=== PATIENT | male | born 1940 | race Caucasian/White ===

== ENCOUNTER 2017-09-12 08:39 | Inpatient (IN) | payer OTHER, MEDICARE ==
[~2017-09-12] VITALS: Ht 172.7 cm; Wt 78.9 kg
[~2017-09-12 08:39] MED LIST: ACEPHEN650 MG PR; ALLOPURINOL100 M1 PO; AMLODIPINE BES2.5 M1 PO; AMLODIPINE10 MG PO; ANBESOL12 ML AS; APAP325 MG PO; ASPIRIN EC325 MG PO; ASPIRIN EC81 M1 PO; ATORVASTATIN CA40 MG PO; BETAMETHASONE D0.054 TOP; BRILINTA90 MG PO; BUFFERIN LOW DO81 MG PO; BUSPIRONE HCL5 MG PO; CARVEDILOL12.5 M1 PO; CARVEDILOL12.5 MG PO; CARVEDILOL25 M1 PO; COLCHICINE0.6 MG PO; COREG25 M1 PO; DULCOLAX10 MG PR; Desitin TOP; ECOTRIN81 MG PO; FENOFIBRATE48 MG PO; FENOFIBRIC ACID45 MG PO; FIRST-VANCOM25 MG/ML PO; FLEET ENEMA 131 UNIT RC; FLOMAX(MONOGRA0.4 MG PO; FLOMAX0.4 M1 PO; GLUCAGON1 MG IM; GLUCOSE PO; HEPARIN 2525000 UNI1 IV; HUMALOG100 U/ML SC; HUMALOG100 UNIT/2 SC; HYDRALAZINE HCL25 MG PO; IMDUR PO; IMDUR30 MG PO; IMDUR60 MG PO; IMODIUM 2 MG. CA2 MG PO; IMODIUM2 MG PO; ISOSORBIDE MONO30 M1 PO; ISOSORBIDE MONO60 M1 PO; LANTUS INS100 UNITS/ SC; LANTUS SOL100 UNIT/1 SC; LANTUS100 U/ML SC; LANTUS100 UNIT/1 SC; LASIX20 MG PO; LASIX40 M1 PO; LEADER MELATONIN5 MG PO; LEVEMIR100 UNIT/1 SC; LEVOTHYROXINE0.15 MG PO; LEXAPRO 10MG10 MG PO; LEXAPRO 5MG5 MG PO; LEXAPRO10 M1 PO; LIPITOR 40MG40 MG PO; LIPITOR80 M1 PO; LIPITOR80 MG PO; LOPRESSOR50 MG PO; MASON NATURAL2000 IU PO; MELATONIN3 MG PO; MELATONIN5 M1 PO; MELATONIN5 M7 PO; MILK OF MAGNESI30 ML PO; NAC600 MG PO; NITROGLYCERIN D25 MG IV; NORVASC 2.5 MG2.5 MG PO; NOVOLIN L100 UNITS/ SC; NOVOLOG100 U/ML SC; NOVOLOG100 UNIT/2 SC; ONE DAILY MULT1 EAC2 PO; PAIN RELIEF650 MG PO; PLAVIX 75MG TAB75 MG PO; PLAVIX75 M1 PO; PREDNISONE 20MG20 MG PO; PREDNISONE10 MG PO; RANEXA 500MG500 MG PO; RANEXA500 M1 PO; SYNTHROID125 MCG PO; TRICOR 48MG48 MG PO; TYLENOL EXTRA500 M2 PO; TYLENOL TAB 32325 MG PO; TYLENOL500 MG PO; ULTRAM50 M1 PO; VITAMIN D32000 UNI1 PO; ZINC OXIDE TOP
[2017-09-12 09:30] LABS: ABSOLUTE BASOPHIL COUNT 0.1 /CUMM (0.0-0.2); ABSOLUTE EOSINOPHIL COUNT 0.3 /CUMM (0.0-0.7); ABSOLUTE GRANULOCYTE CT 5.2 /CUMM (1.4-6.5); ABSOLUTE LYMPH COUNT 0.7 /CUMM (1.2-3.4); ABSOLUTE MONOCYTE COUNT 0.8 /CUMM (0.10-0.60); BASOPHIL % 0.8 % (0.0-2.0); EOSINOPHIL % 4.9 % (0-5); GRANULOCYTE % 73.1 % (42.2-75.2); HEMATOCRIT 28.3 % (42-52); MEAN CORPUSCULAR HGB 31.2 PG (27.0-31.0); MEAN CORPUSCULAR HGB CONC 33.8 G/DL (33.0-37.0); MEAN CORPUSCULAR VOLUME 92.3 FL (80.0-94.0); MEAN PLATELET VOLUME 7.7 FL (7.4-10.4); PLATELET COUNT 259 /CUMM (130-400); RBC DISTRIBUTION WIDTH 18.2 % (11.5-14.5); RED BLOOD CELL CT 3.06 /CUMM (4.70-6.10); WHITE BLOOD CELL COUNT 7.2 /CUMM (4.8-10.8)
[2017-09-12] MEDS ORDERED: FUROSEMIDE20 M1 PO (09:40)
[2017-09-12] MEDS ORDERED: FUROSEMIDE40 M1 PO (09:40)
[2017-09-12] MEDS ORDERED: CARVEDILOL25 M1 PO (09:42)
[2017-09-12] MEDS ORDERED: ISOSORBIDE MONO30 M1 PO (09:44)
[2017-09-12] MEDS ORDERED: B-12 DOTS500 MCG PO (09:46)
--- NOTE | 2017-09-12 09:46 | ED DYSPNEA/ASTHMA COMPLAINT ---
History of Present Illness General Chief Complaint: Dyspnea (COPD, CHF, Other) Stated Complaint: SOB Source: patient, family, old records Exam Limitations: no limitations Vital Signs & Intake/Output Vital Signs & Intake/Output Vital Signs Date Time Temp Pulse Resp B/P B/P Pulse O2 O2 Flow FiO2 Mean Ox Delivery Rate 09/12 1416 97.3 61 18 130/70 95 Room Air 09/12 1118 97.7 67 20 134/66 97 Room Air Room Air 09/12 0905 97 Room Air Room Air 09/12 0851 97.0 67 20 137/82 98 Room Air Allergies Coded Allergies: Iodinated Contrast- Oral and IV Dye (Severe, [place] 03/17/17) Reconcile Medications Acetaminophen (Tylenol Extra Strength) 500 MG TABLET 2 TAB PO Q6 PAIN ( Reported) Allopurinol 100 MG TABLET 1 TAB PO DAILY GOUT (Reported) Aspirin (Ecotrin*) 81 MG TABLET.DR 1 TAB PO DAILY HEART HEALTH (Reported) Atorvastatin Calcium (Lipitor) 80 MG TABLET 1 TAB PO DAILY CHOLESTEROL ( Reported) Carvedilol 25 MG TABLET 1 TAB PO BID HEART (Reported) Cholecalciferol (Vitamin D3) (Vitamin D3) 2,000 UNIT TABLET 1 TAB PO DAILY SUPPLEMENT (Reported) Clopidogrel Bisulfate (Plavix) 75 MG TABLET 1 TAB PO DAILY HEART ATTACK ( Reported) Cyanocobalamin (Vitamin B-12) (B-12 Dots) 500 MCG TABLET 1 TAB PO DAILY VITAMIN SUPPORT (Reported) Escitalopram Oxalate (Lexapro) 10 MG TABLET 5 MG PO DAILY DEPRESSION ( Reported) Furosemide 40 MG TABLET 1 TAB PO Q48 WATER RETENTION (Reported) Furosemide 20 MG TABLET 3 TAB PO Q48 WATER RETENTION (Reported) Insulin Aspart (Novolog) 100 UNIT/1 ML VIAL 0 UNITS SC TIDAC/HS Diabetes Before Each Meal Bolus Insulin: Novolog <80 mg/dl No Coverage 80-100 mg/dl: 2 units 101-120 mg/dl: 2 units 121-150 mg/dl: 2 units 151-200 mg/dl: 3 units 201-250 mg/dl: 4 units 251-300 mg/dl: 5 units 301-350 mg/dl: 6 units 351-400 mg/dl: 7 units >400 mg/dl : 8 units Insulin Glargine,Hum.rec.anlog (Lantus Solostar) 100 UNIT/ML (3 ML) INSULN.PEN 20 UNIT SC BID diabetes (Reported) Isosorbide Mononitrate (Isosorbide Mononitrate ER) 30 MG TAB.ER.24H 1 TAB PO DAILY HEART (Reported) Levothyroxine Sodium (Synthroid) 125 MCG TABLET 1 TAB PO DAILY AC THYROID ( Reported) Melatonin 5 MG TABLET 1 TAB PO QPM SLEEP (Reported) Ranolazine (Ranexa) 500 MG TAB.ER.12H 1 TAB PO BID HEART (Reported) Tamsulosin HCl (Flomax) 0.4 MG CAP.ER.24H 1 CAP PO BID PROSTATE (Reported) Core Measure Meds Pre-Hospital aspirin Triage Note: PT TO ED C/O FEELING SOB SINCE LAST NIGHT. PT NOTED WITH EXERTIONAL SOB. RA SATS 96%. PT DENIES ANY PAIN/CHEST PAIN. EKG DONE. PT TAKEN TO ROOM 12 FOR FURTHER EVAL. Triage Nurses Notes Reviewed? yes Onset: Last week Duration: day(s):, constant, continues in ED, getting worse Timing: recent history Severity: moderate, severe Activities at Onset: activity Prior Episodes/Possible Cause: occasional episodes Modifying Factors: Improves With: rest. Worsens With: movement. Associated Symptoms: weakness HPI: One week prior to admission the patient is had progressive shortness of breath especially with exertion now unable to walk 5 feet with extreme fatigue requiring rest. His Lasix dose has been manipulated by his different doctors. There has been no fever chills nausea vomiting diarrhea abdominal pain chest pain headache dysuria rash bleeding. Past History Travel History Traveled to [place] past 21 day No Medical History Any Pertinent Medical History? see below for history Neurological: ? VASCULAR DEMENTIA EENT: NONE Cardiovascular: CAD, cardiomyopathy, hypertension, hyperlipidemia, myocardial infarction, NSTEMI, systolic CHF, R Carotid Complete Occlu L Carotid 50-75% Occlusio PPM for SSS 03/19/2015. 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 Musculoskeletal: gout, osteoarthritis, rheumatoid arthritis, polymyalgia rheumatica Psychiatric: depression Endocrine: diabetes, hypothyroidism, obesity Blood Disorders: anemia, hx transfx. 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 RIGHT CEA s/p R. CEA Psychosocial History Who do you live with Spouse Services at Home None What is your primary language Pakistani Tobacco Use: Quit >30 days ago ETOH Use: denies use Illicit Drug Use: denies illicit drug use Family History Family History, If Any: SON (hx of Gout, NSAID induced b/L RF, on HD). Age 40-50. FATHER, , Age 80; Cause: Pneumonia. MOTHER, , Age 60+; Cause: Ovarian ca. Relation not specified for: Renal failure Hx Contributory? No Review of Systems Review of Systems Constitutional: Reports: see HPI, weakness. EENTM: Reports: no symptoms. Respiratory: Reports: see HPI, short of breath. Cardiovascular: Reports: no symptoms. GI: Reports: no symptoms. Genitourinary: Reports: no symptoms. Musculoskeletal: Reports: no symptoms. Skin: Reports: no symptoms. Neurological/Psychological: Reports: no symptoms. Hematologic/Endocrine: Reports: no symptoms. Immunologic/Allergic: Reports: no symptoms. All Other Systems: Reviewed and Negative Physical Exam Physical Exam General Appearance: well developed/nourished, alert, awake, moderate distress, obese Head: atraumatic, normal appearance Eyes: Bilateral: normal appearance, PERRL, EOMI. Ears, Nose, Throat: normal pharynx, normal ENT inspection, hearing grossly normal Neck: normal inspection, supple, JVD, no midline tenderness Respiratory: chest non-tender, rales, respiratory distress Cardiovascular: regular rate/rhythm, normal peripheral pulses, norml femoral pulses equa Peripheral Pulses: 4+ carotid (R), 4+ carotid (L) Gastrointestinal: normal bowel sounds, soft, non-tender, no organomegaly Extremities: normal inspection, normal capillary refill, normal range of motion, no edema Neurologic/Psych: no motor/sensory deficits, awake, alert, oriented x 3, normal gait, normal mood/affect, survival equipment repairer II-XII nml as tested Skin: intact, pallor Lymphatic: no anterior cervical charles Core Measures ACS in differential dx? Yes No ASA d/t Pharmacological CI CVA/TIA Diagnosis No Sepsis Present: No Sepsis Focused Exam Completed? No Progress Differential Diagnosis: CHF, COPD, pneumonia Plan of Care: Orders Procedure Date/time Status Consistent Carbohydrate 2 09/12 L Active Weight 09/12 1225 Active Vital Signs 09/12 1225 Active Teach/Educate 09/12 1225 Active Pain Treatment and Response 09/12 1225 Active Nutritional Intake, Monitor 09/12 1225 Active Isolation 09/12 1225 Active Intake & Output 09/12 1225 Active Patient Care Conference 09/12 1225 Active Activity/Ambulation 09/12 1225 Active Patient Data 09/12 1135 Active OXYGEN SETUP (GEN) 09/12 0915 Active Saline Lock 09/12 0915 Active Admit to inpatient 09/12 0915 Active Vital Signs 09/12 0915 Active Activity/Ambulation 09/12 0915 Active Code Status 09/12 0915 Active TROPONIN LEVEL 09/12 0912 Complete MAGNESIUM 09/13 911 Complete COMPREHENSIVE METABOLIC PANEL 09/12 09 Complete CBC WITHOUT DIFFERENTIAL 09/13 911 Complete B-TYPE NATRIURETIC PEP (BNP) 09/12 0912 Complete Intake & Output 09/12 0904 Active FingerStick- Glucose 09/12 0851 Active EKG 09/12 0841 Active Current Medications Sig/Silvia Start time Last Medication Dose Stop Time Status Admin Allopurinol 100 MG DAILY 09/13 899 AC (Zyloprim) Aspirin Buffered 81 MG DAILY 09/13 899 AC (Ecotrin) Cholecalciferol 2,000 IU DAILY 09/13 899 AC (Vitamin D) Clopidogrel Bisulfate 75 MG DAILY 09/13 899 AC (Plavix) Cyanocobalamin 1,000 MCG DAILY 09/13 899 AC (Vitamin B12) Escitalopram Oxalate 5 MG DAILY 09/13 899 AC (Lexapro) Isosorbide 30 MG DAILY 09/13 899 AC Mononitrate (Imdur) Levothyroxine Sodium 0.125 MG DAILY AC 09/13 699 AC (Synthroid) Carvedilol 25 MG BID 09/12 2099 AC (Coreg) Insulin Detemir 20 UNITS BID 09/12 2099 AC (Levemir) Melatonin 5 MG QPM 09/12 2099 AC (Melatonin) Ranolazine 500 MG BID 09/12 2099 AC (Ranexa) Tamsulosin HCl 0.4 MG BID 09/12 2099 AC (Flomax) Atorvastatin Calcium 80 MG 1700 09/12 1700 AC (Lipitor) Insulin Aspart 0 TIDAC 09/12 1700 AC 09/12 (NovoLOG) 1337 Laboratory Tests 09/12/17 0920: Anion Gap 14, Estimated GFR 34 L, BUN/Creatinine Ratio 35.8 H, Glucose 168 H, Calcium 8.5, Magnesium 1.7, Total Bilirubin 0.5, AST 26, ALT 37, Alkaline Phosphatase 90, Troponin I 0.02, Raw-U-Nlywszhjekq Pept 36069 H, Total Protein 7.0, Albumin 3.2 L, Globulin 3.8, Albumin/Globulin Ratio 0.8 L, CBC w Diff NO MAN DIFF REQ, RBC 3.06 L, MCV 92.3, MCH 31.2 H, MCHC 33.8, RDW 18.2 H, MPV 7.7, Gran % 73.1, Lymphocytes % 9.9 L, Monocytes % 11.3 H, Eosinophils % 4.9, Basophils % 0.8, Absolute Granulocytes 5.2, Absolute Lymphocytes 0.7 L, Absolute Monocytes 0.8 H, Absolute Eosinophils 0.3, Absolute Basophils 0.1 Diagnostic Imaging: Viewed by Me: Radiology Read. Discussed w/RAD: Radiology Read. Initial ED EKG: RBBB, nonspecific ST T wave chg Prior EKG: unchanged Rhythm Strip: normal sinus rhythm Departure Departure Disposition: STILL A PATIENT Condition: Stable Clinical Impression Primary Impression: Congestive heart failure Secondary Impressions: Chronic renal insufficiency Referrals: Radha PALAFOX,Bethanie Ambrosio (PCP/Family) Departure Forms: Customer Survey General Discharge Information Admission Note Spoke With: Neftaly PALAFOX,Mitzy Moran Documentation of Exam: Documentation of any treatments & extenuating circumstances including Concerns Regarding Discharge (functional status, medication knowledge or non-compliance, living conditions, etc.) that warrant an admission rather than observation: Supplemental oxygen IV diuresis serial lab exam serial EKG cardiology evaluation pulmonary evaluation renal evaluation medication adjustment physical therapy continuing care discharge planning Critical Care Note Critical Care Note Critical Care Time: non-applicable
--- NOTE | 2017-09-12 11:49 | History & Physical ---
See Addendum Thea PALAFOXRy 09/12/17 1148: General Information and HPI History of Present Illness: 76-year-old man with significant past medical history of ischemic cardiomyopathy (35-40%), coronary artery disease/MA/and STEMI status post PCI with stent 2 on aspirin/Plavix, vascular dementia, insulin-dependent diabetes mellitus, hypertension, hyperlipidemia, and obesity seen for evaluation of progressively worsening shortness of breath with productive cough. Patient reportedly sees multiple providers for his "breathing problems" who manage his "water pill". Patient sees dry food products mixer Dr. Clayton, district court judge Elliott Claros MD, and retail maintenance technician Dr. Faria. Patient reportedly recently had his Lasix regimen changed from 40 mg by mouth daily to 40 mg every other day alternating with 60 mg every other day. Patient is only able to walk approximately 15 feet without becoming profoundly short of breath. He denies any recent fever, chills, chest pain, palpitations. He has reportedly been drinking a lot of fluids but has not been eating well. Due to progressively worsening symptoms his family member brought him to the [facility] for evaluation. Presently patient states at rest his breathing is comfortable and he has no complaints. Review of systems He otherwise denies any headache, fever, chills, blurred/double vision, lightheadedness/dizziness, chest pain, palpitations, heartburn, current shortness of breath, nausea, vomiting, diarrhea, constipation, urinary symptoms. Social history Patient denies using tobacco or alcohol. He ambulates with assistance of a rolling walker. He is unable to sleep lying flat at night and uses several blankets/pillows to elevate his head to approximately a 45 angle. He is unable to ascend stairs without significant discomfort. He is reportedly compliant with his medications. Allergies/Medications Allergies: Coded Allergies: Iodinated Contrast- Oral and IV Dye (Severe, [place] 03/17/17) Home Med list Acetaminophen (Tylenol Extra Strength) 500 MG TABLET 2 TAB PO Q6 PAIN ( Reported) Allopurinol 100 MG TABLET 1 TAB PO DAILY GOUT (Reported) Aspirin (Ecotrin*) 81 MG TABLET.DR 1 TAB PO DAILY HEART HEALTH (Reported) Atorvastatin Calcium (Lipitor) 80 MG TABLET 1 TAB PO DAILY CHOLESTEROL ( Reported) Carvedilol 25 MG TABLET 1 TAB PO BID HEART (Reported) Cholecalciferol (Vitamin D3) (Vitamin D3) 2,000 UNIT TABLET 1 TAB PO DAILY SUPPLEMENT (Reported) Clopidogrel Bisulfate (Plavix) 75 MG TABLET 1 TAB PO DAILY HEART ATTACK ( Reported) Cyanocobalamin (Vitamin B-12) (B-12 Dots) 500 MCG TABLET 1 TAB PO DAILY VITAMIN SUPPORT (Reported) Escitalopram Oxalate (Lexapro) 10 MG TABLET 5 MG PO DAILY DEPRESSION ( Reported) Furosemide 40 MG TABLET 1 TAB PO Q48 WATER RETENTION (Reported) Furosemide 20 MG TABLET 3 TAB PO Q48 WATER RETENTION (Reported) Insulin Aspart (Novolog) 100 UNIT/1 ML VIAL 0 UNITS SC TIDAC/HS Diabetes Before Each Meal Bolus Insulin: Novolog <80 mg/dl No Coverage 80-100 mg/dl: 2 units 101-120 mg/dl: 2 units 121-150 mg/dl: 2 units 151-200 mg/dl: 3 units 201-250 mg/dl: 4 units 251-300 mg/dl: 5 units 301-350 mg/dl: 6 units 351-400 mg/dl: 7 units >400 mg/dl : 8 units Insulin Glargine,Hum.rec.anlog (Lantus Solostar) 100 UNIT/ML (3 ML) INSULN.PEN 20 UNIT SC BID diabetes (Reported) Isosorbide Mononitrate (Isosorbide Mononitrate ER) 30 MG TAB.ER.24H 1 TAB PO DAILY HEART (Reported) Levothyroxine Sodium (Synthroid) 125 MCG TABLET 1 TAB PO DAILY AC THYROID ( Reported) Melatonin 5 MG TABLET 1 TAB PO QPM SLEEP (Reported) Ranolazine (Ranexa) 500 MG TAB.ER.12H 1 TAB PO BID HEART (Reported) Tamsulosin HCl (Flomax) 0.4 MG CAP.ER.24H 1 CAP PO BID PROSTATE (Reported) Past History Travel History Traveled to [place] past 21 day No Medical History Neurological: ? VASCULAR DEMENTIA EENT: NONE Cardiovascular: CAD, cardiomyopathy, hypertension, hyperlipidemia, myocardial infarction, NSTEMI, systolic CHF, R Carotid Complete Occlu L Carotid 50-75% Occlusio PPM for SSS 03/19/2015. 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 Musculoskeletal: gout, osteoarthritis, rheumatoid arthritis, polymyalgia rheumatica Psychiatric: depression Endocrine: diabetes, hypothyroidism, obesity Blood Disorders: anemia, hx transfx. 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 RIGHT CEA s/p R. CEA Past Family/Social History Family History Relations & Conditions if any SON (hx of Gout, NSAID induced b/L RF, on HD). Age 40-50. FATHER, , Age 80; Cause: Pneumonia. MOTHER, , Age 60+; Cause: Ovarian ca. Relation not specified for: Renal failure Psychosocial History Who Do You Live With? spouse ((2nd , Sydnee Cisse).) Services at Home: None Primary Language: Thai ETOH Use: denies use Illicit Drug Use: denies illicit drug use Living Will? yes Power of Block Hand/HCP? yes Name of POA/HCP: Sydnee Cisse, pt's .[phone]. Functional Ability ADLs Independent: dressing, eating, toileting, bathing. Ambulation: independent IADLs Independent: telephone. Needs Assist: housework, food prep. Unknown: shopping, finances, transportation, medication admin. Review of Systems Review of Systems Constitutional: Reports: see HPI. Exam & Diagnostic Data Last 24 Hrs of Vital Signs/I&O Vital Signs Date Time Temp Pulse Resp B/P B/P Pulse O2 O2 Flow FiO2 Mean Ox Delivery Rate 09/12 1416 97.3 61 18 130/70 95 Room Air 09/12 1118 97.7 67 20 134/66 97 Room Air Room Air 09/12 0905 97 Room Air Room Air 09/12 0851 97.0 67 20 137/82 98 Room Air Intake & Output 09/12 1600 09/12 0800 09/12 0000 Intake Total 0 Output Total 500 Balance -500 Intake, Oral 0 Output, Urine 500 Patient 89.811 kg Weight Weight Reported by Patient Measurement Method Physical Exam General Appearance Alert, Oriented X3, Cooperative, No Acute Distress Skin No Rashes, No Breakdown, No Significant Lesion Skin Temp/Moisture Exam: Warm/Dry Sepsis Skin Exam (color): Normal for Ethnicity HEENT Atraumatic, PERRLA, EOMI, Mucous Membr. moist/pink Neck Supple, JVP ~7 Cardiovascular Regular Rate, Normal S1, Normal S2, No Murmurs Lungs Scattered crackles with good airflow Abdomen Normal Bowel Sounds, Soft, No Tenderness, No Hepatospenomegaly, No Masses Neurological Normal Speech, Cranial Nerves 3-12 NL Extremities No Clubbing, No Cyanosis, Normal Pulses, Trace-1+ pedal edema Vascular Normal Pulses, Pulses Symmetrical Last 24 Hrs of Labs/Prateek: Laboratory Tests 09/12/17 0920: Anion Gap 14, Estimated GFR 34 L, BUN/Creatinine Ratio 35.8 H, Glucose 168 H, Calcium 8.5, Magnesium 1.7, Total Bilirubin 0.5, AST 26, ALT 37, Alkaline Phosphatase 90, Troponin I 0.02, Els-C-Kbdbvrxfxoj Pept 26689 H, Total Protein 7.0, Albumin 3.2 L, Globulin 3.8, Albumin/Globulin Ratio 0.8 L, CBC w Diff NO MAN DIFF REQ, RBC 3.06 L, MCV 92.3, MCH 31.2 H, MCHC 33.8, RDW 18.2 H, MPV 7.7, Gran % 73.1, Lymphocytes % 9.9 L, Monocytes % 11.3 H, Eosinophils % 4.9, Basophils % 0.8, Absolute Granulocytes 5.2, Absolute Lymphocytes 0.7 L, Absolute Monocytes 0.8 H, Absolute Eosinophils 0.3, Absolute Basophils 0.1 Assessment/Plan Assessment: 76 year old man with multiple medical problems significant for coronary artery disease/ischemic cardiomyopathy (LVEF 35-40%), vascular dementia, and sick sinus syndrome status post permanent pacemaker seen for evaluation of progressively worsening exertional shortness of breath with productive cough. Currently patient is complaining of his persistent/progressively worsening exertional shortness of breath and productive cough of yellow sputum. Vital signs are unremarkable; patient is saturating well on room air. Physical exam is significant for scattered crackles with elevated JVP and trace pedal edema. Labs including CBC, hepatic function panel, and serum chemistry are significant for creatinine of 1.9 (baseline 1.7-2.4). Other significant labs include magnesium of 1.7, troponin CXR on 09/09/17 demonstrated a stable small partially loculated left pleural effusion with mild increase in interstitial prominence bilaterally suggestive of pulmonary vascular congestion. EKG demonstrated normal sinus rhythm with PACs and incomplete right bundle branch block with ST segment depression in V3-V6. Clinically patient appears to have an acute decompensated systolic congestive heart failure exacerbation based on his recent chest x-ray demonstrating pulmonary vascular congestion, elevated BNP, and physical exam demonstrating elevated JVP, pulmonary crackles, and pedal edema. Patient is to be admitted to the telemetry floor for intravenous diuresis, repeat echocardiogram, serial troponin/EKG, and cardiology evaluation. Problem List -Acute decompensated systolic congestive heart failure -Ischemic cardiomyopathy, LVEF 35-40% (03/2017) -Vascular Dementia -CAD/MA/NSTEMI -Hypertension -Hyperlipidemia -Diabetes Mellitus -Occluded right carotid artery -Left carotid stenosis, 50-70% -SSS s/p PPM -BPH -CKD -Left nephrectomy -Gout -Osteoarthritis -Rheumatoid arthritis -Polymyalgia Rheumatica -Hypothyroidism -History of Renal Cell Carcinoma -Obesity Plan -Admit to telemetry floor -Telemetry monitoring -Strict I & Os, daily weights -TRC evaluation -Accuchecks TIDAC/HS -Lasix 40 mg IV BID, diurese to net negative 1-2 L/day -Levemir 20 U SC BID, Novolog SSI -Continue home meds: allopurinol, aspirin, atorvastatin, coreg, supplements, lexapro, levothyroxine, imdur, melatonin, flomax, ranexa -Consult with cardiology for decompensated CHF -Repeat transthoracic echocardiogram -Serial troponin/EKG -Monitor renal function -Pain control with acetaminophen -Heart Healthy diet -DVT PPx with subcutaneous heparin -DNR/DNI As Ranked By This Provider Problem List: 1. Acute decompensated heart failure Core Measures/Misc (12/19) Acute Coronary Syndrome ACS Diagnosis: No Congestive Heart Failure Congestive Heart Failure Diagnosis Yes Last Known EF % 35 No ANKIT/ARB d/t Renal Failure/Azotemia Cerebrovascular Accident CVA/TIA Diagnosis: No VTE (View Protocol) VTE Risk Factors Age>40 No Mechanical VTE Prophylaxis d/t N/A MechProphylax Ordered No VTE Pharm Prophylaxis d/t NA PharmProphylax ordered Sepsis (View protocol) Sepsis Present: No If YES complete Sepsis Event Note If YES complete Sepsis Event Note Chelsie Arvizu 09/12/17 1228: Core Measures/Misc (12/19) Sepsis (View protocol) If YES complete Sepsis Event Note If YES complete Sepsis Event Note Attending MD Review Statement Attending Statement Attending MD Statement: examined this patient, discuss w/resident/PA/FURNACE HELPER, agreed w/resident/PA/FURNACE HELPER, discussed with family, reviewed EMR data (avail), discussed with nursing, discussed with case mgmt, reviewed images, amended to note
[2017-09-12 14:16] VITALS: BP 130/70
[2017-09-12 22:00] VITALS: BP 122/62
[2017-09-13 07:14] VITALS: BP 106/58
--- NOTE | 2017-09-13 07:33 | PN- Housestaff ---
Diaz Thorntontito 09/13/17 0733: Subjective Follow-up For: Acute on chronic systolic CHF exacerbation Tele-Events Since Last Visit: Paced rhythm, heart rate 60-72 Subjective: Seen and examined patient today family at bedside. Continues to complain of generalized fatigue and shortness of breath at rest. Review of Systems Constitutional: Reports: see HPI. Objective Last 24 Hrs of Vital Signs/I&O Vital Signs Date Time Temp Pulse Resp B/P B/P Pulse O2 O2 Flow FiO2 Mean Ox Delivery Rate 09/13 0714 97.5 94 106/58 09/13 0000 Room Air 09/12 2200 97.5 65 18 122/62 93 Room Air 09/125 Room Air Room Air 09/13 2047 64 118/64 09/13 2047 64 118/64 09/13 2047 64 118/64 09/12 1600 Room Air Intake & Output 09/13 1600 09/13 0800 09/13 0000 Intake Total 240 220 400 Output Total 480 375 400 Balance -240 -155 0 Intake, Oral 240 220 400 Number 0 Bowel Movements Output, Urine 480 375 400 Patient 178 lb Weight Physical Exam General Appearance: Alert, Oriented X3, Cooperative, No Acute Distress Cardiovascular: Regular Rate, Normal S1, Normal S2 Lungs: b/l basillar crackles Abdomen: Soft, No Hepatospenomegaly Extremities: No Edema Current Medications: Current Medications Sig/Silvia Start time Last Medication Dose Route Stop Time Status Admin Acetaminophen 650 MG Q6P PRN 09/12 1445 AC PO Allopurinol 100 MG DAILY 09/13 899 AC 09/13 PO 0849 Aspirin Buffered 81 MG DAILY 09/13 899 AC 09/13 PO 0850 Atorvastatin Calcium 80 MG 1700 09/12 1700 AC 09/12 PO 1732 Carvedilol 25 MG BID 09/12 2100 AC 09/13 PO 0850 Cholecalciferol 2,000 IU DAILY 09/13 899 AC 09/13 PO 0849 Clopidogrel Bisulfate 75 MG DAILY 09/13 899 AC 09/13 PO 0850 Cyanocobalamin 1,000 MCG DAILY 09/13 899 AC 09/13 PO 0850 Escitalopram Oxalate 5 MG DAILY 09/13 899 AC 09/13 PO 0850 Furosemide 40 MG 7:30 AM, & 4:30 PM 09/12 1630 DC 09/13 IV 0618 Heparin Sodium 5,000 UNIT Q8 09/12 2200 AC 09/13 (Porcine) SC 1350 Insulin Aspart 0 TIDAC 09/12 1700 AC 09/13 SC 1230 Insulin Detemir 20 UNITS BID 09/12 2100 AC 09/13 SC 0810 Isosorbide 30 MG DAILY 09/13 0900 AC 09/13 Mononitrate PO 0850 Levothyroxine Sodium 0.125 MG DAILY AC 09/13 0700 AC 09/13 PO 0613 Melatonin 5 MG QPM 09/12 2099 AC 09/12 PO 2046 Ranolazine 500 MG BID 09/12 2100 AC 09/13 PO 0850 Tamsulosin HCl 0.4 MG BID 09/12 2100 AC 09/13 PO 0850 Last 24 Hrs of Lab/Prateek Results Last 24 Hrs of Labs/Mics: Laboratory Tests 09/13/17 0958: Skg-U-Ixorawplypj Pept Cancelled 09/13/17 0647: Anion Gap 12, Estimated GFR 28 L, BUN/Creatinine Ratio 33.0 H, Magnesium 1.8, Kwa-C-Zqzbhvvfbfu Pept 86121 H, CBC w Diff NO MAN DIFF REQ, RBC 3.02 L, MCV 92.6, MCH 31.4 H, MCHC 33.9, RDW 18.4 H, MPV 7.4, Gran % 70.3, Lymphocytes % 11.6 L, Monocytes % 12.0 H, Eosinophils % 5.6 H, Basophils % 0.5, Absolute Granulocytes 5.0, Absolute Lymphocytes 0.8 L, Absolute Monocytes 0.9 H, Absolute Eosinophils 0.4, Absolute Basophils 0 09/12/17 2250: Troponin I 0.02 09/12/17 1602: Troponin I 0.02 Assessment/Plan Assessment: 76-year-old gentleman past medical history significant for Ischemic cardiomyopathy ejection fraction ( last EF 30-35%), coronary artery disease status post bare-metal stent to proximal circumflex and first obtuse marginal in March 2017 currently on aspirin and Plavix, vascular dementia, hypertension, chronic kidney disease, peripheral artery disease, sick sinus syndrome status post pacemaker, liver neoplasm currently managed conservatively Assessment and plan Acute decompensated systolic heart failure 2 new to monitor on telemetry floor Was given 100 mg of Lasix yesterday, will continue with IV diuresis with strict I's and O's Cardiology note G on board, appreciate Echocardiogram done 09/12/17 shows ventricular EF of 4045%, hypokinetic inferior wall and elevated RV pressure of 60 mmHg. Continue Ranexa, carvedilol and Imdur Coronary artery disease Continue aspirin, Plavix and statin ACS ruled out by negative troponins 3 with no acute EKG changes Hypothyroidism Continue levothyroxine Diabetes mellitus Continue Accuchecks, long-acting Levemir at 20 twice daily, NovoLog sliding scale [phone] Chronic kidney disease Creatinine bumped up today to 2.3, most likely secondary to large dose of Lasix yesterday continue to monitor closely Nephrology consulted Continue home medications of Lexapro, allopurinol and Flomax, -PT to evaluate and treat -Pain control with acetaminophen -Heart Healthy diet -DVT PPx with subcutaneous heparin -DNR/DNI Problem List: 1. S/p nephrectomy 2. Heart failure with reduced ejection fraction 3. Insulin dependent diabetes mellitus Pain Ratin Pain Location: na Pain Goal: Pain 4 or less Pain Plan: current regimen Tomorrow's Labs & Rationales: Chelsie Mancia 09/13/17 1043: Attending MD Review Statement Attending Statement Attending MD Statement: examined this patient, discuss w/resident/PA/SYSTEM SUPPORT TECHNICIAN, agreed w/resident/PA/SYSTEM SUPPORT TECHNICIAN, discussed with family, reviewed EMR data (avail), discussed with nursing, discussed with case mgmt, reviewed images, amended to note Attending Assessment/Plan: 76 o/m with multiple medical problems in past comes with shortness of breath on exertion and worsening at rest. He has b/l diffuse crackles on bases. Patient has h/o nephrectomy and being treated by iv lasix. Cardiology consulted and obtain nephrology consult. His creatinne is 2.3 today. Also obtain repeat probnp levels and chest xray. F/u ECHO. No kathy inhibitor 2/2 Kidney insufficiency. AICD upgrade as per cardiology. gi/dvt prophylaxis
[2017-09-13 07:40] LABS: ABSOLUTE BASOPHIL COUNT 0 /CUMM (0.0-0.2); ABSOLUTE EOSINOPHIL COUNT 0.4 /CUMM (0.0-0.7); ABSOLUTE LYMPH COUNT 0.8 /CUMM (1.2-3.4); ABSOLUTE MONOCYTE COUNT 0.9 /CUMM (0.10-0.60); BASOPHIL % 0.5 % (0.0-2.0); EOSINOPHIL % 5.6 % (0-5); GRANULOCYTE % 70.3 % (42.2-75.2); MEAN CORPUSCULAR HGB 31.4 PG (27.0-31.0); MEAN CORPUSCULAR HGB CONC 33.9 G/DL (33.0-37.0); MEAN CORPUSCULAR VOLUME 92.6 FL (80.0-94.0); MEAN PLATELET VOLUME 7.4 FL (7.4-10.4); PLATELET COUNT 270 /CUMM (130-400); RBC DISTRIBUTION WIDTH 18.4 % (11.5-14.5); RED BLOOD CELL CT 3.02 /CUMM (4.70-6.10); WHITE BLOOD CELL COUNT 7.2 /CUMM (4.8-10.8)
--- NOTE | 2017-09-13 09:26 | Cons- Cardiology ---
General Information and HPI Consulting Request Date of Consult: 09/13/17 Requested By: Chelsie Arvizu MD Reason for Consult: CHF Source of Information: patient, family, old records Exam Limitations: dementia History of Present Illness: The patient is a 76-year-old male with a history of ischemic cardiomyopathy ejection fraction 30-35%, sick sinus syndrome status post pacemaker, status post nephrectomy, hypertension, chronic systolic heart failure, renal insufficiency, coronary artery disease status post non-ST elevation myocardial infarction ( catheterization 03/18/2017 diffuse coronary disease with 95% distal LAD, 100% proximal RCA, bare metal stents placed to the proximal circumflex and OM1), and peripheral arterial disease who now presents with worsening shortness of breath. Patient's is at the bedside who assists in providing history. She states that over the past few days he developed worsening shortness of breath. Over the weekend he did not want to come to the emergency room but since his dyspnea significantly worsened she brought him in for evaluation. He denied chest discomfort. There is no notable edema. Patient was administered Lasix 60 milligrams IV once and placed on 40 mg IV daily. Today's creatinine went from 1.9-2.3. In reviewing his recent outpatient blood work his BUN ranges from 68-75 with a creatinine from 2.0-2.2. Allergies/Medications Allergies: Coded Allergies: Iodinated Contrast- Oral and IV Dye (Severe, SD 03/17/17) Home Med List: Acetaminophen (Tylenol Extra Strength) 500 MG TABLET 2 TAB PO Q6 PAIN ( Reported) Allopurinol 100 MG TABLET 1 TAB PO DAILY GOUT (Reported) Aspirin (Ecotrin*) 81 MG TABLET.DR 1 TAB PO DAILY HEART HEALTH (Reported) Atorvastatin Calcium (Lipitor) 80 MG TABLET 1 TAB PO DAILY CHOLESTEROL ( Reported) Carvedilol 25 MG TABLET 1 TAB PO BID HEART (Reported) Cholecalciferol (Vitamin D3) (Vitamin D3) 2,000 UNIT TABLET 1 TAB PO DAILY SUPPLEMENT (Reported) Clopidogrel Bisulfate (Plavix) 75 MG TABLET 1 TAB PO DAILY HEART ATTACK ( Reported) Cyanocobalamin (Vitamin B-12) (B-12 Dots) 500 MCG TABLET 1 TAB PO DAILY VITAMIN SUPPORT (Reported) Escitalopram Oxalate (Lexapro) 10 MG TABLET 5 MG PO DAILY DEPRESSION ( Reported) Furosemide 40 MG TABLET 1 TAB PO Q48 WATER RETENTION (Reported) Furosemide 20 MG TABLET 3 TAB PO Q48 WATER RETENTION (Reported) Insulin Aspart (Novolog) 100 UNIT/1 ML VIAL 0 UNITS SC TIDAC/HS Diabetes Before Each Meal Bolus Insulin: Novolog <80 mg/dl No Coverage 80-100 mg/dl: 2 units 101-120 mg/dl: 2 units 121-150 mg/dl: 2 units 151-200 mg/dl: 3 units 201-250 mg/dl: 4 units 251-300 mg/dl: 5 units 301-350 mg/dl: 6 units 351-400 mg/dl: 7 units >400 mg/dl : 8 units Insulin Glargine,Hum.rec.anlog (Lantus Solostar) 100 UNIT/ML (3 ML) INSULN.PEN 20 UNIT SC BID diabetes (Reported) Isosorbide Mononitrate (Isosorbide Mononitrate ER) 30 MG TAB.ER.24H 1 TAB PO DAILY HEART (Reported) Levothyroxine Sodium (Synthroid) 125 MCG TABLET 1 TAB PO DAILY AC THYROID ( Reported) Melatonin 5 MG TABLET 1 TAB PO QPM SLEEP (Reported) Ranolazine (Ranexa) 500 MG TAB.ER.12H 1 TAB PO BID HEART (Reported) Tamsulosin HCl (Flomax) 0.4 MG CAP.ER.24H 1 CAP PO BID PROSTATE (Reported) Current Medications: Current Medications Sig/Silvia Start time Last Medication Dose Route Stop Time Status Admin Acetaminophen 650 MG Q6P PRN 09/12 1445 AC PO Allopurinol 100 MG DAILY 09/13 09 AC 09/13 PO 0849 Aspirin Buffered 81 MG DAILY 09/13 09 AC 09/13 PO 0850 Atorvastatin Calcium 80 MG 1700 09/12 1700 AC 09/12 PO 1732 Carvedilol 25 MG BID 09/12 2100 AC 09/13 PO 0850 Cholecalciferol 2,000 IU DAILY 09/13 899 AC 09/13 PO 0849 Clopidogrel Bisulfate 75 MG DAILY 09/13 899 AC 09/13 PO 0850 Cyanocobalamin 1,000 MCG DAILY 09/13 09 AC 09/13 PO 0850 Escitalopram Oxalate 5 MG DAILY 09/13 899 AC 09/13 PO 0850 Furosemide 40 MG 7:30 AM, & 4:30 PM 09/12 1630 AC 09/13 IV 0618 Furosemide 0 .STK-MED ONE 06/11 0923 DC IV Furosemide 60 MG ONCE ONE 09/12 0915 DC 09/12 IV 09/12 0916 0925 Heparin Sodium 5,000 UNIT Q8 09/12 2200 AC 09/13 (Porcine) SC 06 Insulin Aspart 0 TIDAC 09/12 1700 AC 09/12 SC 1701 Insulin Detemir 20 UNITS BID 09/12 2100 AC 09/13 SC 0810 Isosorbide 30 MG DAILY 09/13 0900 AC 09/13 Mononitrate PO 0850 Levothyroxine Sodium 0.125 MG DAILY AC 09/13 0700 AC 09/13 PO 0613 Melatonin 5 MG QPM 09/12 2100 AC 09/12 PO 2046 Patient Medication 1 ED ONE ONE 09/12 1315 DC Teaching ED 09/12 1316 Ranolazine 500 MG BID 09/12 2100 AC 09/13 PO 0850 Tamsulosin HCl 0.4 MG BID 09/12 2100 AC 09/13 PO 0850 Review of Systems Review of Systems: Eyes no blurred or double vision Ears no deafness or ringing Nose and throat no recurrent sinusitis Lungs per history of present illness Heart per history of present illness Abdomen no nausea vomiting Musculoskeletal occasional muscle and joint pains Psych no anxiety or depression he does have dementia Neuro without recurrent headache or seizures Endocrine no heat or cold intolerance Past History Travel History Traveled to [place] past 21 day No Medical History Neurological: ? VASCULAR DEMENTIA EENT: NONE Cardiovascular: CAD, cardiomyopathy, hypertension, hyperlipidemia, myocardial infarction, NSTEMI, systolic CHF, R Carotid Complete Occlu L Carotid 50-75% Occlusio PPM for SSS 03/19/2015. 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 Musculoskeletal: gout, osteoarthritis, rheumatoid arthritis, polymyalgia rheumatica Psychiatric: depression Endocrine: diabetes, hypothyroidism, obesity Blood Disorders: anemia, hx transfx. Cancer(s): renal cancer, liposarcoma of abdomen UNDER SHERIFF/Reproductive: NONE Other Medical Hx: Psoriasis Surgical History Surgical History: hernia repair-umbilical, status post left nephrectomy PPM for SSS 03/19/2015. RIGHT CEA s/p R. CEA Family History Relations & Conditions If Any: SON (hx of Gout, NSAID induced b/L RF, on HD). Age 40-50. FATHER, , Age 80; Cause: Pneumonia. MOTHER, , Age 60+; Cause: Ovarian ca. Relation not specified for: Renal failure Psychosocial History Where Do You Live? Home Who Do You Live With? spouse ((2nd , Sydnee Cisse).) Services at Home: None Primary Language: Vietnamese Smoking Status: Former Smoker ETOH Use: denies use Illicit Drug Use: denies illicit drug use Living Will? yes Power of Network Control Operators Supervisor/HCP? yes Name of POA/HCP: Sydnee Cisse, pt's .[phone]. Functional Ability ADLs Independent: dressing, eating, toileting, bathing. Ambulation: independent IADLs Independent: telephone. Needs Assist: housework, food prep. Unknown: shopping, finances, transportation, medication admin. ECHO Results (as available) Report: CONCLUSIONS Normal left ventricular systolic function. Smal Pericardial effusion. Moderate Mitral regurgitation Exam & Diagnostic Data Vital Signs and I&O Vital Signs Date Time Temp Pulse Resp B/P B/P Pulse O2 O2 Flow FiO2 Mean Ox Delivery Rate 09/13 0614 97.5 94 106/58 09/13 0000 Room Air 09/120 97.5 65 18 122/62 93 Room Air 09/12 2125 Room Air Room Air 09/13 2047 64 118/64 09/13 2047 64 118/64 09/13 2047 64 118/64 09/12 1600 Room Air 09/12 1416 97.3 61 18 130/70 95 Room Air 09/12 1245 97 Room Air Room Air 09/12 1118 97.7 67 20 134/66 97 Room Air Room Air Intake & Output 09/13 0800 09/13 0000 09/12 1600 09/12 0000 Intake Total 220 400 200 Output Total 375 400 850 Balance -155 0 -650 Intake, Oral 220 400 200 Number 0 0 Bowel Movements Output, Urine 375 400 850 Patient 178 lb 181 lb Weight Weight Bed scale Measurement Method Physical Exam: Patient is a well-developed well-nourished male appearing in mild respiratory distress HEENT is unremarkable Neck is supple there is no JVD Lungs Rales one third bilaterally Heart regular rhythm S1 and S2 are normal no gallops or rubs 1/6.ejection murmur left sternal border Abdomen bowel sounds positive Extremities without edema Neuro no focal deficits Psych cooperative Skin no lesions noted Lymph no adenopathy Labs/Prateek Results: Laboratory Tests 09/13 09/12 09/12 0647 2250 1602 Chemistry Sodium (137 - 145 mmol/L) 141 Potassium (3.5 - 5.1 mmol/L) 4.5 Chloride (98 - 107 mmol/L) 106 Carbon Dioxide (22 - 30 mmol/L) 23 Anion Gap (5 - 16) 12 BUN (9 - 20 mg/dL) 76 H Creatinine (0.7 - 1.2 mg/dL) 2.3 H Estimated GFR (>60 ml/min) 28 L BUN/Creatinine Ratio (7 - 25 %) 33.0 H Magnesium (1.6 - 2.3 mg/dL) 1.8 Troponin I (<0.11 ng/ml) 0.02 0.02 Hematology CBC w Diff NO MAN DIFF REQ WBC (4.8 - 10.8 /CUMM) 7.2 RBC (4.70 - 6.10 /CUMM) 3.02 L Hgb (14.0 - 18.0 G/DL) 9.5 L Hct (42 - 52 %) 28.0 L MCV (80.0 - 94.0 FL) 92.6 MCH (27.0 - 31.0 PG) 31.4 H MCHC (33.0 - 37.0 G/DL) 33.9 RDW (11.5 - 14.5 %) 18.4 H Plt Count (130 - 400 /CUMM) 270 MPV (7.4 - 10.4 FL) 7.4 Gran % (42.2 - 75.2 %) 70.3 Lymphocytes % (20.5 - 51.1 %) 11.6 L Monocytes % (1.7 - 9.3 %) 12.0 H Eosinophils % (0 - 5 %) 5.6 H Basophils % (0.0 - 2.0 %) 0.5 Absolute Granulocytes (1.4 - 6.5 /CUMM) 5.0 Absolute Lymphocytes (1.2 - 3.4 /CUMM) 0.8 L Absolute Monocytes (0.10 - 0.60 /CUMM) 0.9 H Absolute Eosinophils (0.0 - 0.7 /CUMM) 0.4 Absolute Basophils (0.0 - 0.2 /CUMM) 0 09/12 0920 Chemistry Sodium (137 - 145 mmol/L) 142 Potassium (3.5 - 5.1 mmol/L) 4.3 Chloride (98 - 107 mmol/L) 109 H Carbon Dioxide (22 - 30 mmol/L) 18 L Anion Gap (5 - 16) 14 BUN (9 - 20 mg/dL) 68 H Creatinine (0.7 - 1.2 mg/dL) 1.9 H Estimated GFR (>60 ml/min) 34 L BUN/Creatinine Ratio (7 - 25 %) 35.8 H Glucose (65 - 99 mg/dL) 168 H Calcium (8.4 - 10.2 mg/dL) 8.5 Magnesium (1.6 - 2.3 mg/dL) 1.7 Total Bilirubin (0.2 - 1.3 mg/dL) 0.5 AST (17 - 59 U/L) 26 ALT (21 - 72 U/L) 37 Alkaline Phosphatase (< 127 U/L) 90 Troponin I (<0.11 ng/ml) 0.02 Jgd-Q-Pvzeahgaogt Pept (<125 pg/mL) 22265 H Total Protein (6.3 - 8.2 g/dL) 7.0 Albumin (3.5 - 5.0 g/dL) 3.2 L Globulin (1.9 - 4.2 gm/dL) 3.8 Albumin/Globulin Ratio (1.1 - 2.2 %) 0.8 L Hematology CBC w Diff NO MAN DIFF REQ WBC (4.8 - 10.8 /CUMM) 7.2 RBC (4.70 - 6.10 /CUMM) 3.06 L Hgb (14.0 - 18.0 G/DL) 9.6 L Hct (42 - 52 %) 28.3 L MCV (80.0 - 94.0 FL) 92.3 MCH (27.0 - 31.0 PG) 31.2 H MCHC (33.0 - 37.0 G/DL) 33.8 RDW (11.5 - 14.5 %) 18.2 H Plt Count (130 - 400 /CUMM) 259 MPV (7.4 - 10.4 FL) 7.7 Gran % (42.2 - 75.2 %) 73.1 Lymphocytes % (20.5 - 51.1 %) 9.9 L Monocytes % (1.7 - 9.3 %) 11.3 H Eosinophils % (0 - 5 %) 4.9 Basophils % (0.0 - 2.0 %) 0.8 Absolute Granulocytes (1.4 - 6.5 /CUMM) 5.2 Absolute Lymphocytes (1.2 - 3.4 /CUMM) 0.7 L Absolute Monocytes (0.10 - 0.60 /CUMM) 0.8 H Absolute Eosinophils (0.0 - 0.7 /CUMM) 0.3 Absolute Basophils (0.0 - 0.2 /CUMM) 0.1 Diagnostic Data EKG Results Sinus rhythm right bundle branch block left anterior hemiblock CXR Results IMPRESSION: Stable small partially loculated left pleural effusion. Mild increase in interstitial prominence bilaterally which may relate to pulmonary vascular congestion without definite interstitial or airspace edema. Other Results Telemetry personally reviewed atrial paced Assessment/Plan Assessment/Plan 1. Shortness of breath secondary to acute on chronic systolic heart failure. His troponins are negative and his EKG demonstrates no acute changes therefore the exacerbation is not secondary to an acute infarction. It is most likely a gradual increase in fluid retention along with his renal insufficiency 2. Coronary artery disease as noted above with bare-metal stent to the proximal circumflex and first obtuse marginal March 2017 3. Ischemic cardiomyopathy ejection fraction 30-35% 4. Vascular dementia 5. Status post nephrectomy 6. Hypertension 7. Chronic renal insufficiency with a creatinine ranging from 2.0-2.2 8. Peripheral arterial disease 9. Sick sinus syndrome status post pacemaker 10. Liver neoplasm most likely metastatic being managed conservatively Recommendations 1. I would continue to diurese monitoring his renal function closely since he has a solitary kidney 2. Consider renal consult given his renal insufficiency and history of nephrectomy 3. Given his coronary artery disease would continue aspirin and Plavix. 4. No ANKIT inhibitor due to renal insufficiency 5. Continue Imdur, Ranexa, atorvastatin, and carvedilol 6. Echocardiogram is pending 7. Would attempt to mobilize the patient allowing him to be out of bed to chair along with physical therapy for ambulation to maintain his limited mobility 8. Patient is a candidate for an AICD upgrade. This was discussed with the patient and his by Dr. Clayton and they are now in agreement. This can be performed as an outpatient after discharge. Thank you for allowing [facility] to participate in the care of your patient. Consult Acknowledgment - Thank you for your consult request.
--- NOTE | 2017-09-13 14:41 | ECHOCARDIOGRAM REPORT ---
LUANNE ETIENNE Age: 76 : 1940 Gender: M Exam Date: 09/12/2017 19:48 Exam Location: 1 [address] Ht (in): 68 Wt (lb): 198 BSA: 2.10 BP: 130 / 70 Ordering Physician: Ry Sidhu MD Referring Physician: Adan Clayton M.D. Technologist: Amelia Yusuf RDCS Room Number: 178 Indications: HEART FAILURE Rhythm: Sinus Technical Quality: fair FINDINGS Left Ventricle No left ventricular aneurysm. Mild left ventricular dilatation. Left ventricular wall thickness mildly increased. Mildly abnormal left ventricular ejection fraction estimated at 40-45%. Hypokinetic inferior wall. Right Ventricle Right ventricle not well visualized, grossly normal. Catheter/pacemaker wire in the right ventricular cavity. Right Atrium Normal right atrial size. Left Atrium Mild left atrial dilatation. Mitral Valve Mild mitral annular calcification. Severe mitral regurgitation. . Systolic flow reversal in the pulmonary veins. Aortic Valve Aortic sclerosis. Tricuspid Valve Tricuspid valve is normal in structure and function. Moderate tricuspid regurgitation. Right ventricular systolic pressure estimated to be elevated at 60 mmHg. Pulmonic Valve Pulmonic valve not well visualized, grossly normal. Pericardium No echocardiographic findings to suggest a hemodynamically significant pericardial effusion. Great Vessels Normal size aortic root. CONCLUSIONS Mild to moderate reduction in left ventricular systolic function with suggestion of inferior hypokinesia. Severe Mitral regurgitation and moderate Tricuspid Regurgitation with severe Pulmonary hypertension. Jakob Isabel M.D. (Electronically Signed) Final Date: 13 September 2017 14:40 MEASUREMENTS (Male / Female) Normal Values 2D ECHO LV Diastolic Diameter PLAX 5.6 cm 4.2 - 5.9 / 3.9 - 5.3 cm LV Systolic Diameter PLAX 4.8 cm 2.1 - 4.0 cm LV Fractional Shortening PLAX 14.3 % 25 - 46 % LV Ejection Fraction 2D Teich 30.0 % IVS Diastolic Thickness 1.1 cm LVPW Diastolic Thickness 1.1 cm LV Relative Wall Thickness 0.4 RV Internal Dim ED PLAX 2.9 cm 1.9 - 3.8 cm LVOT Diameter 2.1 cm Aortic Root Diameter 2.9 cm LA Systolic Diameter LX 4.1 cm 3.0 - 4.0 / 2.7 - 3.8 cm LA Volume 49.0 cm 18 - 58 / 22 - 52 cm Ascending Aorta Diameter 3.2 cm DOPPLER AV Peak Velocity 121.0 cm/s AV Peak Gradient 5.9 mmHg AV Mean Velocity 90.0 cm/s AV Mean Gradient 4.0 mmHg AV Velocity Time Integral 25.2 cm LVOT Peak Velocity 125.0 cm/s LVOT Peak Gradient 6.3 mmHg LVOT Mean Velocity 83.5 cm/s LVOT Mean Gradient 3.0 mmHg LVOT Velocity Time Integral 25.7 cm LVOT Stroke Volume 89.0 cm AV Area Cont Eq vti 3.5 cm AV Area Cont Eq pk 3.6 cm MV Peak Velocity 170.0 cm/s MV Peak Gradient 11.6 mmHg MV Mean Velocity 71.7 cm/s MV Mean Gradient 3.0 mmHg Mitral E Point Velocity 152.0 cm/s Mitral A Point Velocity 74.7 cm/s Mitral E to A Ratio 2.0 MV PHT Velocity 178.0 cm/s MV Deceleration [place] 827.0 cm/s MV Pressure Half Time 64.6 ms MV Area PHT 3.4 cm MV Deceleration Time 243.0 ms TR Peak Velocity 385.0 cm/s TR Peak Gradient 59.3 mmHg Right Atrial Pressure 10.0 mmHg Pulmonary Artery Systolic Pressu 69.3 mmHg Right Ventricular Systolic Press 69.3 mmHg PV Peak Velocity 96.1 cm/s PV Peak Gradient 3.7 mmHg PV Mean Velocity 61.6 cm/s PV Mean Gradient 2.0 mmHg PV Velocity Time Integral 20.3 cm LV E' Lateral Velocity 5.2 cm/s Mitral E to LV E' Lateral Ratio 29.4 LV E' Septal Velocity 3.8 cm/s Mitral E to LV E' Septal Ratio 40.0
[2017-09-13 14:49] VITALS: BP 116/66
--- NOTE | 2017-09-13 15:19 | Cons- Nephrology ---
General Information and HPI Consulting Request Date of Consult: 09/13/17 Requested By: Chelsie Arvizu MD Reason for Consult: CKD Source of Information: patient, old records Exam Limitations: no limitations History of Present Illness: The patient is a 76-year-old male with past medical history no significant for stage III/IV chronic kidney disease with baseline creatinine approximately 2-2.2 , renal cell carcinoma status post right nephrectomy in 2013, DM, HTN, ischemic cardiomyopathy with an EF of 30-35%, sick sinus syndrome status post pacemaker, hypertension who presents with shortness of breath. The patient was in his usual state of health prior to the last couple months when he reported dyspnea on exertion. His Lasix were adjusted by the nurse practitioner to 40 mg alternating with 60 mg. His creatinine as an outpatient was 2.2 with these adjustments. The patient himself reported approximately a weeks worth of increased orthopnea as well as paroxysmal nocturnal dyspnea. He was so short of breath he can hardly walk 15 feet. No chest pain. He underwent a chest x-ray on 09/09 which noted a mild increase in interstitial prominence bilaterally. Ultimately he presented to the emergency room for these symptoms. In the ER, his initial blood pressure was 137/82afebrile. Labs notable for creatinine 1.9, negative troponins, albumin 3.2. Echocardiogram with ejection fraction 40-45%, severe mitral regurgitation, and moderate tricuspid regurgitation with severe pulmonary hypertension (prior TTE in July with LVEF 30-35%, mild-moderate MR and trace TR). He has received 60mg IV lasix and then 40mg IV lasix. He is written for 5mg PO metolazone BID (has not gotten a dose yet). He has been recorded as making 2255cc urine. SCr 2.3 today. Pt feeling a bit better. Allergies/Medications Allergies: Coded Allergies: Iodinated Contrast- Oral and IV Dye (Severe, DC 03/17/17) Home Med List: Acetaminophen (Tylenol Extra Strength) 500 MG TABLET 2 TAB PO Q6 PAIN ( Reported) Allopurinol 100 MG TABLET 1 TAB PO DAILY GOUT (Reported) Aspirin (Ecotrin*) 81 MG TABLET.DR 1 TAB PO DAILY HEART HEALTH (Reported) Atorvastatin Calcium (Lipitor) 80 MG TABLET 1 TAB PO DAILY CHOLESTEROL ( Reported) Carvedilol 25 MG TABLET 1 TAB PO BID HEART (Reported) Cholecalciferol (Vitamin D3) (Vitamin D3) 2,000 UNIT TABLET 1 TAB PO DAILY SUPPLEMENT (Reported) Clopidogrel Bisulfate (Plavix) 75 MG TABLET 1 TAB PO DAILY HEART ATTACK ( Reported) Cyanocobalamin (Vitamin B-12) (B-12 Dots) 500 MCG TABLET 1 TAB PO DAILY VITAMIN SUPPORT (Reported) Escitalopram Oxalate (Lexapro) 10 MG TABLET 5 MG PO DAILY DEPRESSION ( Reported) Furosemide 40 MG TABLET 1 TAB PO Q48 WATER RETENTION (Reported) Furosemide 20 MG TABLET 3 TAB PO Q48 WATER RETENTION (Reported) Insulin Aspart (Novolog) 100 UNIT/1 ML VIAL 0 UNITS SC TIDAC/HS Diabetes Before Each Meal Bolus Insulin: Novolog <80 mg/dl No Coverage 80-100 mg/dl: 2 units 101-120 mg/dl: 2 units 121-150 mg/dl: 2 units 151-200 mg/dl: 3 units 201-250 mg/dl: 4 units 251-300 mg/dl: 5 units 301-350 mg/dl: 6 units 351-400 mg/dl: 7 units >400 mg/dl : 8 units Insulin Glargine,Hum.rec.anlog (Lantus Solostar) 100 UNIT/ML (3 ML) INSULN.PEN 20 UNIT SC BID diabetes (Reported) Isosorbide Mononitrate (Isosorbide Mononitrate ER) 30 MG TAB.ER.24H 1 TAB PO DAILY HEART (Reported) Levothyroxine Sodium (Synthroid) 125 MCG TABLET 1 TAB PO DAILY AC THYROID ( Reported) Melatonin 5 MG TABLET 1 TAB PO QPM SLEEP (Reported) Ranolazine (Ranexa) 500 MG TAB.ER.12H 1 TAB PO BID HEART (Reported) Tamsulosin HCl (Flomax) 0.4 MG CAP.ER.24H 1 CAP PO BID PROSTATE (Reported) Current Medications: Current Medications Sig/Silvia Start time Last Medication Dose Route Stop Time Status Admin Acetaminophen 650 MG Q6P PRN 09/12 1445 AC PO Allopurinol 100 MG DAILY 09/13 0900 AC 09/13 PO 0849 Aspirin Buffered 81 MG DAILY 09/13 0900 AC 09/13 PO 0850 Atorvastatin Calcium 80 MG 1700 09/12 1700 AC 09/12 PO 1732 Carvedilol 25 MG BID 09/12 2100 AC 09/13 PO 0850 Cholecalciferol 2,000 IU DAILY 09/13 899 AC 09/13 PO 0849 Clopidogrel Bisulfate 75 MG DAILY 09/13 899 AC 09/13 PO 0850 Cyanocobalamin 1,000 MCG DAILY 09/13 899 AC 09/13 PO 0850 Escitalopram Oxalate 5 MG DAILY 09/13 899 AC 09/13 PO 0850 Furosemide 40 MG 7:30 AM, & 4:30 PM 09/12 1630 DC 09/13 IV 0618 Heparin Sodium 5,000 UNIT Q8 09/12 2200 AC 09/13 (Porcine) SC 1350 Insulin Aspart 0 TIDAC 09/12 1700 AC 09/13 SC 1230 Insulin Detemir 20 UNITS BID 09/12 2100 AC 09/13 SC 0810 Isosorbide 30 MG DAILY 09/13 899 AC 09/13 Mononitrate PO 0850 Levothyroxine Sodium 0.125 MG DAILY AC 09/13 07 AC 09/13 PO 0613 Melatonin 5 MG QPM 09/12 2099 AC 09/12 PO 2046 Metolazone 5 MG BID 09/13 2099 AC PO Ranolazine 500 MG BID 09/12 2100 AC 09/13 PO 0850 Tamsulosin HCl 0.4 MG BID 09/12 2100 AC 09/13 PO 0850 Review of Systems Review of Systems: Complete 14 point ROS neg except as per HPI Past History Travel History Traveled to [place] past 21 day No Medical History Neurological: ? VASCULAR DEMENTIA EENT: NONE Cardiovascular: CAD, cardiomyopathy, hypertension, hyperlipidemia, myocardial infarction, NSTEMI, systolic CHF, R Carotid Complete Occlu L Carotid 50-75% Occlusio PPM for SSS 03/19/2015. 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 Musculoskeletal: gout, osteoarthritis, rheumatoid arthritis, polymyalgia rheumatica Psychiatric: depression Endocrine: diabetes, hypothyroidism, obesity Blood Disorders: anemia, hx transfx. Cancer(s): renal cancer, liposarcoma of abdomen GRAIN BROKER/Reproductive: NONE Other Medical Hx: Psoriasis Surgical History Surgical History: hernia repair-umbilical, status post left nephrectomy PPM for SSS 03/19/2015. RIGHT CEA s/p R. CEA Family History Relations & Conditions If Any: SON (hx of Gout, NSAID induced b/L RF, on HD). Age 40-50. FATHER, , Age 80; Cause: Pneumonia. MOTHER, , Age 60+; Cause: Ovarian ca. Relation not specified for: Renal failure Psychosocial History Where Do You Live? Home Who Do You Live With? spouse ((2nd , Sydnee Cisse).) Services at Home: None Primary Language: Syriac Smoking Status: Former Smoker ETOH Use: denies use Illicit Drug Use: denies illicit drug use Living Will? yes Power of Case Resource Manager/HCP? yes Name of POA/HCP: Sydnee Cisse, pt's .[phone]. Functional Ability ADLs Independent: dressing, eating, toileting, bathing. Ambulation: independent IADLs Independent: telephone. Needs Assist: housework, food prep. Unknown: shopping, finances, transportation, medication admin. Exam & Diagnostic Data Vital Signs and I&O Vital Signs Date Time Temp Pulse Resp B/P B/P Pulse O2 O2 Flow FiO2 Mean Ox Delivery Rate 09/13 1449 97.3 61 20 116/66 96 Room Air 09/13 0714 97.5 94 106/58 09/13 0000 Room Air 09/12 2200 97.5 65 18 122/62 93 Room Air 09/12 2125 Room Air Room Air 09/13 2047 64 118/64 09/13 2047 64 118/64 09/13 2047 64 118/64 09/12 1600 Room Air Intake & Output 09/13 1600 09/13 0400 09/12 1600 09/12 0400 09/11 1600 09/11 0400 Intake Total 460 400 200 Output Total 1005 400 850 Balance -545 0 -650 Intake, Oral 460 400 200 Number 0 0 Bowel Movements Output, Urine 1005 400 850 Patient 178 lb 181 lb Weight Weight Bed scale Measurement Method Physical Exam: Gen - NAD Head - NCAT Eyes - anicteric sclera, EOMI Neck - supple, JVP visible although not clearly up CV - RRR, no m/r/g Chest - clear, no w/r/r Abd - soft, NTND Upper ext - warm, no edema Lower ext - warm, no edema Skin - no rash or jaundice Neuro - AOX3, grossly nonfocal Results Pertinent Lab Results: Laboratory Tests 09/13 09/13 09/12 6159 3942 4000 Chemistry Sodium (137 - 145 mmol/L) 141 Potassium (3.5 - 5.1 mmol/L) 4.5 Chloride (98 - 107 mmol/L) 106 Carbon Dioxide (22 - 30 mmol/L) 23 Anion Gap (5 - 16) 12 BUN (9 - 20 mg/dL) 76 H Creatinine (0.7 - 1.2 mg/dL) 2.3 H Estimated GFR (>60 ml/min) 28 L BUN/Creatinine Ratio (7 - 25 %) 33.0 H Magnesium (1.6 - 2.3 mg/dL) 1.8 Troponin I (<0.11 ng/ml) 0.02 Hpr-R-Rrtxnnbomcr Pept (<125 pg/mL) Cancelled 13451 H Hematology CBC w Diff NO MAN DIFF REQ WBC (4.8 - 10.8 /CUMM) 7.2 RBC (4.70 - 6.10 /CUMM) 3.02 L Hgb (14.0 - 18.0 G/DL) 9.5 L Hct (42 - 52 %) 28.0 L MCV (80.0 - 94.0 FL) 92.6 MCH (27.0 - 31.0 PG) 31.4 H MCHC (33.0 - 37.0 G/DL) 33.9 RDW (11.5 - 14.5 %) 18.4 H Plt Count (130 - 400 /CUMM) 270 MPV (7.4 - 10.4 FL) 7.4 Gran % (42.2 - 75.2 %) 70.3 Lymphocytes % (20.5 - 51.1 %) 11.6 L Monocytes % (1.7 - 9.3 %) 12.0 H Eosinophils % (0 - 5 %) 5.6 H Basophils % (0.0 - 2.0 %) 0.5 Absolute Granulocytes (1.4 - 6.5 /CUMM) 5.0 Absolute Lymphocytes (1.2 - 3.4 /CUMM) 0.8 L Absolute Monocytes (0.10 - 0.60 /CUMM) 0.9 H Absolute Eosinophils (0.0 - 0.7 /CUMM) 0.4 Absolute Basophils (0.0 - 0.2 /CUMM) 0 09/12 09/12 1602 0920 Chemistry Sodium (137 - 145 mmol/L) 142 Potassium (3.5 - 5.1 mmol/L) 4.3 Chloride (98 - 107 mmol/L) 109 H Carbon Dioxide (22 - 30 mmol/L) 18 L Anion Gap (5 - 16) 14 BUN (9 - 20 mg/dL) 68 H Creatinine (0.7 - 1.2 mg/dL) 1.9 H Estimated GFR (>60 ml/min) 34 L BUN/Creatinine Ratio (7 - 25 %) 35.8 H Glucose (65 - 99 mg/dL) 168 H Calcium (8.4 - 10.2 mg/dL) 8.5 Magnesium (1.6 - 2.3 mg/dL) 1.7 Total Bilirubin (0.2 - 1.3 mg/dL) 0.5 AST (17 - 59 U/L) 26 ALT (21 - 72 U/L) 37 Alkaline Phosphatase (< 127 U/L) 90 Troponin I (<0.11 ng/ml) 0.02 0.02 Gpb-V-Yqcqetpgyxi Pept (<125 pg/mL) 80940 H Total Protein (6.3 - 8.2 g/dL) 7.0 Albumin (3.5 - 5.0 g/dL) 3.2 L Globulin (1.9 - 4.2 gm/dL) 3.8 Albumin/Globulin Ratio (1.1 - 2.2 %) 0.8 L Hematology CBC w Diff NO MAN DIFF REQ WBC (4.8 - 10.8 /CUMM) 7.2 RBC (4.70 - 6.10 /CUMM) 3.06 L Hgb (14.0 - 18.0 G/DL) 9.6 L Hct (42 - 52 %) 28.3 L MCV (80.0 - 94.0 FL) 92.3 MCH (27.0 - 31.0 PG) 31.2 H MCHC (33.0 - 37.0 G/DL) 33.8 RDW (11.5 - 14.5 %) 18.2 H Plt Count (130 - 400 /CUMM) 259 MPV (7.4 - 10.4 FL) 7.7 Gran % (42.2 - 75.2 %) 73.1 Lymphocytes % (20.5 - 51.1 %) 9.9 L Monocytes % (1.7 - 9.3 %) 11.3 H Eosinophils % (0 - 5 %) 4.9 Basophils % (0.0 - 2.0 %) 0.8 Absolute Granulocytes (1.4 - 6.5 /CUMM) 5.2 Absolute Lymphocytes (1.2 - 3.4 /CUMM) 0.7 L Absolute Monocytes (0.10 - 0.60 /CUMM) 0.8 H Absolute Eosinophils (0.0 - 0.7 /CUMM) 0.3 Absolute Basophils (0.0 - 0.2 /CUMM) 0.1 Imaging/Other Studies: TTE CONCLUSIONS Mild to moderate reduction in left ventricular systolic function with suggestion of inferior hypokinesia. Severe Mitral regurgitation and moderate Tricuspid Regurgitation with severe Pulmonary hypertension. Assessment/Plan Assessment/Recommendations Assessment: Stage III/IV CKD - 2/2 diabetes, HTN, and reduced nephron mass (RCC s/p nephrectomy). SOB - Chest x-ray done as an outpatient with pulm edema. Should note that he seems to have new severe pulm HTN on his most recent TTE - not entirely clear what this is from (perhaps some component from L sided fluid but not clear that this is the whole clinical picture) - Cards following. Anemia - Hg below goal for CKD - should check ferritin, iron, TIBC, folate, Vit B12, guaiac stool, and reticulocyte count. May need supplementation +/- GIANNA. Recommendations: -OK to use 40mg IV lasix BID -No clear need for metolazone at this time -Cards f/u re: pulm HTN -Should check ferritin, iron, TIBC, folate, Vit B12, guaiac stool, and reticulocyte count. May need supplementation +/- GIANNA. Please call [phone] with ?'s
--- NOTE | 2017-09-13 16:35 | RADIOLOGY REPORT ---
EXAMINATION: XR CHEST CLINICAL INFORMATION: Shortness of breath. Presumptive diagnosis of pulmonary edema. COMPARISON: Several prior chest x-rays, most recent of which is dated 09/09/2017. TECHNIQUE: 2 views of the chest were obtained on 3 images. FINDINGS: Right atrial and right ventricular pacer leads are in place. Left axillary nelson are noted. The cardiomediastinal silhouette is enlarged, unchanged. Ectasia of the aorta is again noted. There is a small loculated left-sided pleural effusion again seen, extending into the left major fissure, unchanged from prior exam. Associated left basilar atelectatic changes are noted. No significant right-sided pleural effusion is seen. Some patchy opacity in the right mid lung and right lower lung is noted, consistent with subtle atelectatic change. No dense consolidation is seen. Mild central vascular congestion is noted. No overt pulmonary edema is seen. Bony structures are unchanged. Moderate vertebral spurring seen throughout the spine. IMPRESSION: 1. No significant change in loculated left-sided pleural effusion with associated left basilar opacities, likely representing atelectasis. 2. No significant right-sided pleural effusion. 3. Mild patchy opacity in the right mid lung and in the right lower lung, most likely representing atelectasis. 4. Central vascular congestion without overt pulmonary edema.
[2017-09-13 21:27] VITALS: BP 122/62
[2017-09-14 06:47] VITALS: BP 110/58
--- NOTE | 2017-09-14 08:47 | PN- Housestaff ---
GerardperryDenise duarte 09/14/17 0847: Subjective Follow-up For: Acute on chronic systolic/diastolic CHF exacerbation Tele-Events Since Last Visit: paced rhythm, 62-90 Subjective: Seen and examined patient, no shortness of breath worse on lying down and bed spring maker. States that he is gasping for breath overnight. Review of Systems Constitutional: Reports: see HPI. Objective Last 24 Hrs of Vital Signs/I&O Vital Signs Date Time Temp Pulse Resp B/P B/P Pulse O2 O2 Flow FiO2 Mean Ox Delivery Rate 09/14 0857 64 110/58 09/14 0857 64 110/58 09/14 0856 64 110/58 09/14 0856 64 110/58 09/14 0647 97.9 64 26 110/58 96 Room Air 09/14 0632 96 Room Air 09/13 212 97.9 64 20 122/62 94 Room Air 09/13 212 65 116/60 09/13 2126 65 116/60 09/13 2126 65 116/60 09/13 1600 Room Air 09/13 1449 97.3 61 20 116/66 96 Room Air Intake & Output 09/14 1600 09/14 0800 09/14 0000 Intake Total 550 Output Total 300 750 625 Balance -300 -750 -75 Intake, Oral 550 Number 1 Bowel Movements Output, Urine 300 750 625 Patient 177 lb Weight Weight Bed scale Measurement Method Physical Exam General Appearance: Alert, Oriented X3, Cooperative, Mild Distress Cardiovascular: Regular Rate, Normal S1, Normal S2 Lungs: Normal Air Movement Abdomen: Soft, No Tenderness Extremities: No Edema Current Medications: Current Medications Sig/Silvia Start time Last Medication Dose Route Stop Time Status Admin Acetaminophen 650 MG Q6P PRN 09/12 1445 AC PO Allopurinol 100 MG DAILY 09/13 899 AC 09/14 PO 0857 Aspirin Buffered 81 MG DAILY 09/13 899 AC 09/14 PO 0856 Atorvastatin Calcium 80 MG 1700 09/12 1700 AC 09/13 PO 1647 Carvedilol 25 MG BID 09/12 2100 AC 09/14 PO 0856 Cholecalciferol 2,000 IU DAILY 09/13 899 AC 09/14 PO 0857 Clopidogrel Bisulfate 75 MG DAILY 09/13 899 AC 09/14 PO 0857 Cyanocobalamin 1,000 MCG DAILY 09/13 899 AC 09/14 PO 0857 Escitalopram Oxalate 5 MG DAILY 09/13 0900 AC 09/14 PO 0857 Furosemide 40 MG 7:30 AM, & 4:30 PM 09/13 2145 AC 09/14 IV 0855 Heparin Sodium 5,000 UNIT Q8 09/12 2200 AC 09/14 (Porcine) SC 0638 Insulin Aspart 0 TIDAC 09/12 1700 AC 09/13 SC 1230 Insulin Detemir 20 UNITS BID 09/12 2100 AC 09/14 SC 0855 Isosorbide 30 MG DAILY 09/13 0900 AC 09/14 Mononitrate PO 0856 Levothyroxine Sodium 0.125 MG DAILY AC 09/13 0700 AC 09/14 PO 0639 Magnesium Oxide 400 MG BID 09/14 09 AC PO Melatonin 5 MG QPM 09/12 2099 AC 09/13 PO 2124 Metolazone 5 MG BID 09/13 2100 DC PO Patient Medication 1 ED ONE ONE 09/13 1630 DC Teaching ED 09/13 1631 Ranolazine 500 MG BID 09/12 2099 AC 09/14 PO 0857 Tamsulosin HCl 0.4 MG BID 09/12 2099 AC 09/14 PO 0857 Last 24 Hrs of Lab/Prateek Results Last 24 Hrs of Labs/Mics: Laboratory Tests 09/14/17 0627: Anion Gap 15, Estimated GFR 31 L, BUN/Creatinine Ratio 36.7 H, Magnesium 1.8 09/13/17 1830: Retic Count 3.87 H Assessment/Plan Assessment: 76-year-old gentleman past medical history significant for Ischemic cardiomyopathy ejection fraction ( last EF 30-35%), coronary artery disease status post bare-metal stent to proximal circumflex and first obtuse marginal in March 2017 currently on aspirin and Plavix, vascular dementia, hypertension, chronic kidney disease, peripheral artery disease, sick sinus syndrome status post pacemaker, liver neoplasm with mets to liver currently managed conservatively. Assessment and plan Dyspnea at rest Acute decompensated systolic/ diastolic heart failure continue on telemetry floor will continue with IV diuresis with strict I's and O's Cardiology on board, appreciate recs Echocardiogram done 09/12/17 shows ventricular EF of 4045%, hypokinetic inferior wall and elevated RV pressure of 60 mmHg. Continue Ranexa, carvedilol and Imdur Nephrology input for ARB or Aldactone given his worsening TR, worsening dyspnea over few months in the setting of malignancy CTEPH is possiblility, V/Q could be considered. Coronary artery disease Continue aspirin, Plavix and statin ACS ruled out by negative troponins 3 with no acute EKG changes Hypothyroidism Continue levothyroxine Diabetes mellitus Continue Accuchecks, long-acting Levemir at 20 twice daily, NovoLog sliding scale fingersticks 140,140,140 Chronic kidney disease Creatinine 2.3--> 2.1, continue to monitor closely Nephrology on board Anemia of chronic Disease Normal Iron/ferritin, vit b12, rectic levels wnl will start on IV Fe Continue home medications of Lexapro, allopurinol and Flomax, -PT to evaluate and treat -Pain control with acetaminophen -Heart Healthy diet -DVT PPx with subcutaneous heparin -DNR/DNI Problem List: 1. Hypothyroid 2. Diabetes 3. Acute decompensated heart failure Pain Ratin Pain Location: na Pain Goal: Pain 4 or less Pain Plan: current plan Tomorrow's Labs & Rationales: Chelsie Mancia 09/14/17 1258: Attending MD Review Statement Attending Statement Attending MD Statement: examined this patient, discuss w/resident/PA/SWIMMING TEACHER, agreed w/resident/PA/SWIMMING TEACHER, discussed with family, reviewed EMR data (avail), discussed with nursing, discussed with case mgmt, reviewed images, amended to note Attending Assessment/Plan: Patient seen/exmained bedside. C/o dyspnea overnight. vitals and labs noted. Cardiology and nephrolgoy consulted. Chest xray with central vascular congestion noted which was done after patient received durietcs in ER. Patient dyspnea on rest from acute on chronic CHF exacebration with systolic and diastolic component. Cardiology consulted. ECHO with some improvement in EF as compared to old. Iv lasix 40 bid as per cardiology and nephrology. Pulmoanry hypertension iv diuretics , supprotive care CAD s/p stent on DAPT SSS s/p pacemaker no active issues RCC s/p nephrectomy with solitary kidney functioning. Cr 2.1 stable Chronic kidney disease Stage 3. Monitor creatinine closely while diuresing Valvular disease with Severe MR and TR. Continue diuretics and follow cardiology. Vascular dementia cont supportive care, avoid delirium triggers gi/dvt prophyalxis
--- NOTE | 2017-09-14 10:38 | PN- Cardiology ---
Subjective Subjective: Patient feels slightly better today. Objective Vital Signs and I&Os Vital Signs Date Time Temp Pulse Resp B/P B/P Pulse O2 O2 Flow FiO2 Mean Ox Delivery Rate 09/14 0857 64 110/58 09/14 0857 64 110/58 09/14 0856 64 110/58 09/14 0856 64 110/58 09/14 0647 97.9 64 26 110/58 96 Room Air 09/14 0632 96 Room Air 09/13 2126 97.9 64 20 122/62 94 Room Air 09/13 2125 65 116/60 09/13 2125 65 116/60 09/13 2125 65 116/60 09/13 1600 Room Air 09/13 1449 97.3 61 20 116/66 96 Room Air Intake & Output 09/14 1600 09/14 0800 09/14 0000 09/13 1600 09/13 0800 09/13 0000 Intake Total 550 240 220 400 Output Total 750 625 630 375 400 Balance -750 -75 -390 -155 0 Intake, Oral 550 240 220 400 Number 0 Bowel Movements Output, Urine 750 625 630 375 400 Patient 177 lb 178 lb Weight Weight Bed scale Measurement Method Physical Exam: General: no apparent distress. Alert. Eyes: No obvious scleral icterus. HEENT: No jugular venous distention or abnormal jugular venous pulsations. Cardiovascular: Normal intensity S1/S2. Pacemaker noted Respiratory: Mildly decreased air entry at the left base Abdomen: Soft, nontender with no guarding or rebound tenderness. Musculoskeletal: No clubbing or cyanosis noted; no edema Skin: warm Neurologic: No gross focal deficits noted. Current Medications: Current Medications Sig/Silvia Start time Last Medication Dose Route Stop Time Status Admin Acetaminophen 650 MG Q6P PRN 09/12 1445 AC PO Allopurinol 100 MG DAILY 09/13 899 AC 09/14 PO 0857 Aspirin Buffered 81 MG DAILY 09/13 899 AC 09/14 PO 0856 Atorvastatin Calcium 80 MG 1700 09/12 1700 AC 09/13 PO 1647 Carvedilol 25 MG BID 09/12 2100 AC 09/14 PO 0856 Cholecalciferol 2,000 IU DAILY 09/13 899 AC 09/14 PO 0857 Clopidogrel Bisulfate 75 MG DAILY 09/13 899 AC 09/14 PO 0857 Cyanocobalamin 1,000 MCG DAILY 09/13 899 AC 09/14 PO 0857 Escitalopram Oxalate 5 MG DAILY 09/13 09 AC 09/14 PO 0857 Furosemide 40 MG 7:30 AM, & 4:30 PM 09/13 2145 AC 09/14 IV 0855 Heparin Sodium 5,000 UNIT Q8 09/12 2200 AC 09/14 (Porcine) SC 0638 Insulin Aspart 0 TIDAC 09/12 1700 AC 09/13 SC 1230 Insulin Detemir 20 UNITS BID 09/12 2100 AC 09/14 SC 0855 Isosorbide 30 MG DAILY 09/13 09 AC 09/14 Mononitrate PO 0856 Levothyroxine Sodium 0.125 MG DAILY AC 09/13 0700 AC 09/14 PO 0639 Magnesium Oxide 400 MG BID 09/14 09 AC PO Melatonin 5 MG QPM 09/12 2099 AC 09/13 PO 2124 Metolazone 5 MG BID 09/13 2100 DC PO Patient Medication 1 ED ONE ONE 09/13 1630 DC Teaching ED 09/13 1631 Ranolazine 500 MG BID 09/12 2099 AC 09/14 PO 0857 Tamsulosin HCl 0.4 MG BID 09/12 2099 AC 09/14 PO 0857 Results Last 48 Hrs of Labs/Mics: Laboratory Tests 09/14/17 0627: Anion Gap 15, Estimated GFR 31 L, BUN/Creatinine Ratio 36.7 H, Magnesium 1.8 09/13/17 1830: Retic Count 3.87 H 09/13/17 0958: Yyg-Q-Deqhhulidzd Pept Cancelled 09/13/17 0647: Anion Gap 12, Estimated GFR 28 L, BUN/Creatinine Ratio 33.0 H, Magnesium 1.8, Iron 53, TIBC 264, Ferritin 113.0, Pwy-B-Qhlpwxffzmr Pept 28112 H, Vitamin B12 893, Folate 14.4, CBC w Diff NO MAN DIFF REQ, RBC 3.02 L, MCV 92.6, MCH 31.4 H , MCHC 33.9, RDW 18.4 H, MPV 7.4, Gran % 70.3, Lymphocytes % 11.6 L, Monocytes % 12.0 H, Eosinophils % 5.6 H, Basophils % 0.5, Absolute Granulocytes 5.0, Absolute Lymphocytes 0.8 L, Absolute Monocytes 0.9 H, Absolute Eosinophils 0.4 , Absolute Basophils 0 09/12/17 2250: Troponin I 0.02 09/12/17 1602: Troponin I 0.02 Recent Imaging Studies: Telemetry tracings were personally reviewed and show atrial pacing Echocardiogram Mild to moderate reduction in left ventricular systolic function with suggestion of inferior hypokinesia. Severe Mitral regurgitation and moderate Tricuspid Regurgitation with severe Pulmonary hypertension. Assessment/Plan Assessment/Plan 1. 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 2. Coronary artery disease as noted above with bare-metal stent to the proximal circumflex and first obtuse marginal March 2017 3. Ischemic cardiomyopathy ejection fraction 30-35%; now 40-45% 4. Vascular dementia 5. Status post nephrectomy 6. Hypertension 7. Chronic renal insufficiency with a creatinine ranging from 2.0-2.2 8. Peripheral arterial disease 9. Sick sinus syndrome status post pacemaker 10. Liver neoplasm most likely metastatic being managed conservatively 11. Mitral regurgitation/pulmonary hypertension Echocardiogram shows some improvement in ejection fraction but also with evidence of diastolic dysfunction and pulmonary hypertension. Would continue diuresis with close monitoring of renal function. Follow strict I's and O's and daily weights. Discuss with nephrology if he is a candidate for ARB and Aldactone therapy. Telemetry shows appropriate atrial pacing. Blood pressure is well controlled. Tunde Clayton MD [facility] Continue telemetry? Yes
--- NOTE | 2017-09-14 12:49 | PN- Nephrology ---
Assessment/Plan Nephrology Assessment: Stage III/IV CKD - 2/2 diabetes, HTN, and reduced nephron mass (RCC s/p nephrectomy). SOB - Appears to be multifactorial including pulm edema (?improving), L sided pleural effusion (noted to be exudative in the past). Has new severe pulm HTN which seems out of proportion to the amount of fluid he has one exam/imaging - he does seem to be tolerating diuresis for now. CHF - Reduced LVEF - potassium is OK although given reduced eGFR, need to be careful with initiation of RAAS inhibition (not sure that he could tolerate both an ANKIT-I and mineralicorticoid antagonist). Anemia - Hg below goal for CKD - Iron stores borderline - may benefit from IV iron. Suggestion: -OK to cont 40mg IV lasix BID -OK to initiate RAAS inhibition (would hold off on dual ANKIT-I/MRA) but would wait until euvolemic as to now confuse diuretic effect vs med effect - K and SCr would need to be closely monitored as an outpatient -?Pulm consult given pleural effusion -Cards f/u re: pulm HTN -Start ferrlecit 125mg every other day x8 doses Please call [phone] with ?'s Subjective Subjective: SCr 2.1 Got 40mg IV lasix x2 yesterday - 1630cc UOP; no weight yet today Dyspnea overnight Chest x-ray with unchanged loculated L pleural effusion; also with central vascular congestion without overt pulm edema Objective Vital Signs and I&Os Vital Signs Date Time Temp Pulse Resp B/P B/P Pulse O2 O2 Flow FiO2 Mean Ox Delivery Rate 09/14 0857 64 110/58 09/14 0857 64 110/58 09/14 0856 64 110/58 09/14 0856 64 110/58 09/14 0800 96 Room Air Room Air 09/14 0647 97.9 64 26 110/58 96 Room Air 09/14 0632 96 Room Air 09/13 2126 97.9 64 20 122/62 94 Room Air 09/13 2125 65 116/60 09/136 65 116/60 09/13 2125 65 116/60 09/13 1600 Room Air 09/13 1449 97.3 61 20 116/66 96 Room Air Intake & Output 09/14 1600 09/14 0400 09/13 1600 09/13 0400 09/12 0400 Intake Total 310 550 460 400 200 Output Total 6445 628 3065 400 850 Balance -740 -75 -545 0 -650 Intake, IV 10 Intake, Oral 300 550 460 400 200 Number 2 0 0 Bowel Movements Output, Urine 6843 478 1838 400 850 Patient 177 lb 178 lb 181 lb Weight Weight Bed scale Bed scale Measurement Method Physical Exam: Gen - ok appearing HEENT - JVP not visible CV - RRR, no m/r/g Chest - L sided crackles, no wheezes/rhonchi Abd - soft, NTND Ext - warm, no edema Neuro - alert, conversive Current Medications: Current Medications Sig/Silvia Start time Last Medication Dose Route Stop Time Status Admin Acetaminophen 650 MG Q6P PRN 09/12 1445 AC PO Allopurinol 100 MG DAILY 09/13 899 AC 09/14 PO 0857 Aspirin Buffered 81 MG DAILY 09/13 899 AC 09/14 PO 0856 Atorvastatin Calcium 80 MG 1700 09/12 1700 AC 09/13 PO 1647 Carvedilol 25 MG BID 09/12 2099 AC 09/14 PO 0856 Cholecalciferol 2,000 IU DAILY 09/13 09 AC 09/14 PO 0857 Clopidogrel Bisulfate 75 MG DAILY 09/13 09 AC 09/14 PO 0857 Cyanocobalamin 1,000 MCG DAILY 09/13 09 AC 09/14 PO 0857 Escitalopram Oxalate 5 MG DAILY 09/13 0900 AC 09/14 PO 0857 Furosemide 40 MG 7:30 AM, & 4:30 PM 09/13 2145 AC 09/14 IV 0855 Heparin Sodium 5,000 UNIT Q8 09/12 2200 AC 09/14 (Porcine) SC 0638 Insulin Aspart 0 TIDAC 09/12 1700 AC 09/14 SC 1152 Insulin Detemir 20 UNITS BID 09/12 2100 AC 09/14 SC 0855 Isosorbide 30 MG DAILY 09/13 09 AC 09/14 Mononitrate PO 0856 Levothyroxine Sodium 0.125 MG DAILY AC 09/13 0700 AC 09/14 PO 0639 Magnesium Oxide 400 MG BID 09/14 0900 AC 09/14 PO 1153 Melatonin 5 MG QPM 09/12 2100 AC 09/13 PO 2124 Metolazone 5 MG BID 09/13 2100 DC PO Patient Medication 1 ED ONE ONE 09/14 1230 DC Teaching ED 09/14 1231 Patient Medication 1 ED ONE ONE 09/13 1630 [facility] ED 09/13 1631 Ranolazine 500 MG BID 09/12 2099 09/14 PO 0857 Tamsulosin HCl 0.4 MG BID 09/12 2099 09/14 PO 0857 Results Pertinent Lab Results: Laboratory Tests 09/14 09/13 09/13 0627 1830 0958 Chemistry Sodium (137 - 145 mmol/L) 140 Potassium (3.5 - 5.1 mmol/L) 4.2 Chloride (98 - 107 mmol/L) 104 Carbon Dioxide (22 - 30 mmol/L) 21 L Anion Gap (5 - 16) 15 BUN (9 - 20 mg/dL) 77 H Creatinine (0.7 - 1.2 mg/dL) 2.1 H Estimated GFR (>60 ml/min) 31 L BUN/Creatinine Ratio (7 - 25 %) 36.7 H Magnesium (1.6 - 2.3 mg/dL) 1.8 Egh-V-Qmowcrtzeyq Pept Cancelled Hematology Retic Count (0.5 - 2.0 %) 3.87 H 09/13 09/12 09/12 0647 2250 1602 Chemistry Sodium (137 - 145 mmol/L) 141 Potassium (3.5 - 5.1 mmol/L) 4.5 Chloride (98 - 107 mmol/L) 106 Carbon Dioxide (22 - 30 mmol/L) 23 Anion Gap (5 - 16) 12 BUN (9 - 20 mg/dL) 76 H Creatinine (0.7 - 1.2 mg/dL) 2.3 H Estimated GFR (>60 ml/min) 28 L BUN/Creatinine Ratio (7 - 25 %) 33.0 H Magnesium (1.6 - 2.3 mg/dL) 1.8 Iron (49 - 181 ug/dL) 53 TIBC (261 - 462 ug/dL) 264 Ferritin (17.9 - 464 ng/mL) 113.0 Troponin I (<0.11 ng/ml) 0.02 0.02 Avb-A-Lesvlbtcwnq Pept (<125 pg/mL) 98279 H Vitamin B12 (239 - 931 pg/mL) 893 Folate (2.76 - 20.0 ng/mL) 14.4 Hematology CBC w Diff NO MAN DIFF REQ WBC (4.8 - 10.8 /CUMM) 7.2 RBC (4.70 - 6.10 /CUMM) 3.02 L Hgb (14.0 - 18.0 G/DL) 9.5 L Hct (42 - 52 %) 28.0 L MCV (80.0 - 94.0 FL) 92.6 MCH (27.0 - 31.0 PG) 31.4 H MCHC (33.0 - 37.0 G/DL) 33.9 RDW (11.5 - 14.5 %) 18.4 H Plt Count (130 - 400 /CUMM) 270 MPV (7.4 - 10.4 FL) 7.4 Gran % (42.2 - 75.2 %) 70.3 Lymphocytes % (20.5 - 51.1 %) 11.6 L Monocytes % (1.7 - 9.3 %) 12.0 H Eosinophils % (0 - 5 %) 5.6 H Basophils % (0.0 - 2.0 %) 0.5 Absolute Granulocytes (1.4 - 6.5 /CUMM) 5.0 Absolute Lymphocytes (1.2 - 3.4 /CUMM) 0.8 L Absolute Monocytes (0.10 - 0.60 /CUMM) 0.9 H Absolute Eosinophils (0.0 - 0.7 /CUMM) 0.4 Absolute Basophils (0.0 - 0.2 /CUMM) 0 06/11 0920 Chemistry Sodium (137 - 145 mmol/L) 142 Potassium (3.5 - 5.1 mmol/L) 4.3 Chloride (98 - 107 mmol/L) 109 H Carbon Dioxide (22 - 30 mmol/L) 18 L Anion Gap (5 - 16) 14 BUN (9 - 20 mg/dL) 68 H Creatinine (0.7 - 1.2 mg/dL) 1.9 H Estimated GFR (>60 ml/min) 34 L BUN/Creatinine Ratio (7 - 25 %) 35.8 H Glucose (65 - 99 mg/dL) 168 H Calcium (8.4 - 10.2 mg/dL) 8.5 Magnesium (1.6 - 2.3 mg/dL) 1.7 Total Bilirubin (0.2 - 1.3 mg/dL) 0.5 AST (17 - 59 U/L) 26 ALT (21 - 72 U/L) 37 Alkaline Phosphatase (< 127 U/L) 90 Troponin I (<0.11 ng/ml) 0.02 Ygr-V-Vzjamwkdaik Pept (<125 pg/mL) 05200 H Total Protein (6.3 - 8.2 g/dL) 7.0 Albumin (3.5 - 5.0 g/dL) 3.2 L Globulin (1.9 - 4.2 gm/dL) 3.8 Albumin/Globulin Ratio (1.1 - 2.2 %) 0.8 L Hematology CBC w Diff NO MAN DIFF REQ WBC (4.8 - 10.8 /CUMM) 7.2 RBC (4.70 - 6.10 /CUMM) 3.06 L Hgb (14.0 - 18.0 G/DL) 9.6 L Hct (42 - 52 %) 28.3 L MCV (80.0 - 94.0 FL) 92.3 MCH (27.0 - 31.0 PG) 31.2 H MCHC (33.0 - 37.0 G/DL) 33.8 RDW (11.5 - 14.5 %) 18.2 H Plt Count (130 - 400 /CUMM) 259 MPV (7.4 - 10.4 FL) 7.7 Gran % (42.2 - 75.2 %) 73.1 Lymphocytes % (20.5 - 51.1 %) 9.9 L Monocytes % (1.7 - 9.3 %) 11.3 H Eosinophils % (0 - 5 %) 4.9 Basophils % (0.0 - 2.0 %) 0.8 Absolute Granulocytes (1.4 - 6.5 /CUMM) 5.2 Absolute Lymphocytes (1.2 - 3.4 /CUMM) 0.7 L Absolute Monocytes (0.10 - 0.60 /CUMM) 0.8 H Absolute Eosinophils (0.0 - 0.7 /CUMM) 0.3 Absolute Basophils (0.0 - 0.2 /CUMM) 0.1 Imaging/Other Studies: TTE CONCLUSIONS Mild to moderate reduction in left ventricular systolic function with suggestion of inferior hypokinesia. Severe Mitral regurgitation and moderate Tricuspid Regurgitation with severe Pulmonary hypertension. Chest X-ray IMPRESSION: 1. No significant change in loculated left-sided pleural effusion with associated left basilar opacities, likely representing atelectasis. 2. No significant right-sided pleural effusion. 3. Mild patchy opacity in the right mid lung and in the right lower lung, most likely representing atelectasis. 4. Central vascular congestion without overt pulmonary edema.
[2017-09-14 14:03] VITALS: BP 128/60
--- NOTE | 2017-09-14 21:18 | Cons- Pulmonary ---
General Information and HPI Consulting Request Date of Consult: 09/14/17 Requested By: Medical team History of Present Illness: Bradly is a 76-year-old male with a history of ischemic cardiomyopathy ejection fraction 30-35%, sick sinus syndrome status post pacemaker, status post nephrectomy, hypertension, chronic systolic heart failure, renal insufficiency, coronary artery disease status post non-ST elevation myocardial infarction ( catheterization 03/18/2017 diffuse coronary disease with 95% distal LAD, 100% proximal RCA, bare metal stents placed to the proximal circumflex and OM1), and peripheral arterial disease who now presents with worsening shortness of breath. He has had significant paroxysmal nocturnal dyspnea She states that over the past few days he developed worsening shortness of breath. Over the weekend he did not want to come to the emergency room but since his dyspnea significantly worsened she brought him in for evaluation. He denied chest discomfort. There is no notable edema. Patient was administered Lasix 60 milligrams IV once and placed on 40 mg IV daily. Today's creatinine went from 1.9-2.3. In reviewing his recent outpatient blood work his BUN ranges from 68-75 with a creatinine from 2.0-2.2. Since he came in here he has had significant worsening pulmonary hypertension and he has chronic left pleural effusion hence this consult. 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 Allergies/Medications Allergies: Coded Allergies: Iodinated Contrast- Oral and IV Dye ([place], [place] 03/17/17) Home Med List: Acetaminophen (Tylenol Extra Strength) 500 MG TABLET 2 TAB PO Q6 PAIN ( Reported) Allopurinol 100 MG TABLET 1 TAB PO DAILY GOUT (Reported) Aspirin (Ecotrin*) 81 MG TABLET.DR 1 TAB PO DAILY HEART HEALTH (Reported) Atorvastatin Calcium (Lipitor) 80 MG TABLET 1 TAB PO DAILY CHOLESTEROL ( Reported) Carvedilol 25 MG TABLET 1 TAB PO BID HEART (Reported) Cholecalciferol (Vitamin D3) (Vitamin D3) 2,000 UNIT TABLET 1 TAB PO DAILY SUPPLEMENT (Reported) Clopidogrel Bisulfate (Plavix) 75 MG TABLET 1 TAB PO DAILY HEART ATTACK ( Reported) Cyanocobalamin (Vitamin B-12) (B-12 Dots) 500 MCG TABLET 1 TAB PO DAILY VITAMIN SUPPORT (Reported) Escitalopram Oxalate (Lexapro) 10 MG TABLET 5 MG PO DAILY DEPRESSION ( Reported) Furosemide 40 MG TABLET 1 TAB PO Q48 WATER RETENTION (Reported) Furosemide 20 MG TABLET 3 TAB PO Q48 WATER RETENTION (Reported) Insulin Aspart (Novolog) 100 UNIT/1 ML VIAL 0 UNITS SC TIDAC/HS Diabetes Before Each Meal Bolus Insulin: Novolog <80 mg/dl No Coverage 80-100 mg/dl: 2 units 101-120 mg/dl: 2 units 121-150 mg/dl: 2 units 151-200 mg/dl: 3 units 201-250 mg/dl: 4 units 251-300 mg/dl: 5 units 301-350 mg/dl: 6 units 351-400 mg/dl: 7 units >400 mg/dl : 8 units Insulin Glargine,Hum.rec.anlog (Lantus Solostar) 100 UNIT/ML (3 ML) INSULN.PEN 20 UNIT SC BID diabetes (Reported) Isosorbide Mononitrate (Isosorbide Mononitrate ER) 30 MG TAB.ER.24H 1 TAB PO DAILY HEART (Reported) Levothyroxine Sodium (Synthroid) 125 MCG TABLET 1 TAB PO DAILY AC THYROID ( Reported) Melatonin 5 MG TABLET 1 TAB PO QPM SLEEP (Reported) Ranolazine (Ranexa) 500 MG TAB.ER.12H 1 TAB PO BID HEART (Reported) Tamsulosin HCl (Flomax) 0.4 MG CAP.ER.24H 1 CAP PO BID PROSTATE (Reported) Review of Systems Review of Systems Constitutional: Reports: see HPI. Past History Travel History Traveled to [place] past 21 day No Medical History Neurological: ? VASCULAR DEMENTIA EENT: NONE Cardiovascular: CAD, cardiomyopathy, hypertension, hyperlipidemia, myocardial infarction, NSTEMI, systolic CHF, R Carotid Complete Occlu L Carotid 50-75% Occlusio PPM for SSS 03/19/2015. 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 Musculoskeletal: gout, osteoarthritis, rheumatoid arthritis, polymyalgia rheumatica Psychiatric: depression Endocrine: diabetes, hypothyroidism, obesity Blood Disorders: anemia, hx transfx. 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 RIGHT CEA s/p R. CEA Family History Relations & Conditions If Any: SON (hx of Gout, NSAID induced b/L RF, on HD). Age 40-50. FATHER, , Age 80; Cause: Pneumonia. MOTHER, , Age 60+; Cause: Ovarian ca. Relation not specified for: Renal failure Psychosocial History Where Do You Live? Home Who Do You Live With? spouse ((2nd , Sydnee Cisse).) Services at Home: None Primary Language: Icelandic Smoking Status: Former Smoker ETOH Use: denies use Illicit Drug Use: denies illicit drug use Living Will? yes Power of [place]/HCP? yes Name of POA/HCP: Sydnee Cisse, pt's .[phone]. Functional Ability ADLs Independent: dressing, eating, toileting, bathing. Ambulation: independent IADLs Independent: telephone. Needs Assist: housework, food prep. Unknown: shopping, finances, transportation, medication admin. Exam & Diagnostic Data Last 24 Hrs of Vital Signs/I&O Vital Signs Date Time Temp Pulse Resp B/P B/P Pulse O2 O2 Flow FiO2 Mean Ox Delivery Rate 09/14 1403 97.9 63 22 128/60 96 Room Air 09/14 0857 64 110/58 09/14 0857 64 110/58 09/14 0856 64 110/58 09/14 0856 64 110/58 09/14 0800 96 Room Air Room Air 09/14 0647 97.9 64 26 110/58 96 Room Air 09/14 0632 96 Room Air 09/13 2127 97.9 64 20 122/62 94 Room Air 09/13 2125 65 116/60 09/13 2125 65 116/60 09/13 2125 65 116/60 Intake & Output 09/14 1600 09/14 0800 09/14 0000 Intake Total 510 550 Output Total 650 750 625 Balance -140 -750 -75 Intake, IV 10 Intake, Oral 500 550 Number 2 Bowel Movements Output, Urine 650 750 625 Patient 177 lb Weight Weight Bed scale Measurement Method Last 48 Hrs of Labs/Prateek: Laboratory Tests 09/14/17 0627: Anion Gap 15, Estimated GFR 31 L, BUN/Creatinine Ratio 36.7 H, Magnesium 1.8 09/13/17 1830: Retic Count 3.87 H 09/13/17 0958: Aka-W-Cqkmkncrbdi Pept Cancelled 09/13/17 0647: Anion Gap 12, Estimated GFR 28 L, BUN/Creatinine Ratio 33.0 H, Magnesium 1.8, Iron 53, TIBC 264, Ferritin 113.0, Qav-X-Ukyfpyxnwpi Pept 22748 H, Vitamin B12 893, Folate 14.4, CBC w Diff NO MAN DIFF REQ, RBC 3.02 L, MCV 92.6, MCH 31.4 H , MCHC 33.9, RDW 18.4 H, MPV 7.4, Gran % 70.3, Lymphocytes % 11.6 L, Monocytes % 12.0 H, Eosinophils % 5.6 H, Basophils % 0.5, Absolute Granulocytes 5.0, Absolute Lymphocytes 0.8 L, Absolute Monocytes 0.9 H, Absolute Eosinophils 0.4 , Absolute Basophils 0 09/12/17 2250: Troponin I 0.02 Assessment/Plan Impression/Plan: General Appearance: awake, mild distress Head: atraumatic, normal appearance Respiratory: crackles Cardiovascular: edema, gallop/S3 Gastrointestinal: soft, non-tender Extremities: swelling 76-year-old male PMH of Vascular dementia, CAD, cardiomyopathy, coronary artery disease, myocardial infarction, cardiomyopathy, systolic congestive heart failure, hypertension, hyperlipidemia, diabetes mellitus, pneumonia, sick sinus syndrome status post pacemaker placement 2014 Htn, HLD, STEMI, CHF, right carotid complete occlusion, 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 Patient now has severe mitral regurgitation by echocardiogram with reversal of flow into the pulmonary veins. Most of his symptoms are related to mixed chronic systolic and diastolic heart failure with low ejection fraction and valvular heart disease * Chronic effusion especially in the left with previous thoracentesis which had not revealed any involvement of liposarcoma. This was an exudative pleural fluid. Patient now has chronic stable left effusion which has been present since 2016. No clinical evidence suggestive of any other malignancy at this present time * CKD with richelle * Significant vascular dementia with worsening performance status * Peripheral vascular disease with carotid endarterectomy * Diabetes, and peripheral vascular disease, BPH, hypertension, gout, heart disease with chronic diastolic and systolic heart failure. * Chronic kidney disease with previous nephrectomy * Enlarging liver mass which is prob liposarcoma met which is increasing in size REC Oxygen if needed No indication to do thoracentesis in the left side at this time as he has loculated chronic organized effusion No other workup for pulmonary hypertension is necessary at this time\\ Diuresis per cardiology Order overnight oximetry to see whether he has cyclical desaturation to rule out central apnea versus obstructive sleep apnea We will follow closely Consult Acknowledgment - Thank you for your consult request.
[2017-09-14 21:28] VITALS: BP 138/60
[2017-09-15 06:31] VITALS: BP 128/62
--- NOTE | 2017-09-15 07:23 | PN- Housestaff ---
Denise Thornton 09/15/17 0722: Subjective Follow-up For: Acute on chronic systolic/diastolic CHF exacerbation Severe pulm htn Subjective: Seen and examined patient. States he was unable to sleep overnight. feels minimally improved today. Denies fever, chills, chest pain. Review of Systems Constitutional: Reports: see HPI. Objective Last 24 Hrs of Vital Signs/I&O Vital Signs Date Time Temp Pulse Resp B/P B/P Pulse O2 O2 Flow FiO2 Mean Ox Delivery Rate 09/15 630 97.8 59 20 128/62 95 Room Air 09/15 0000 Room Air 09/14 2154 65 138/60 09/14 2151 65 138/60 09/14 2151 65 138/60 09/148 98.2 65 138/60 93 Room Air 09/14 1403 97.9 63 22 128/60 96 Room Air 09/14 0857 64 110/58 09/14 0857 64 110/58 09/14 0856 64 110/58 09/14 0856 64 110/58 Intake & Output 09/15 1600 09/15 0800 09/15 0000 Intake Total 120 300 Output Total 400 300 Balance -280 0 Intake, Oral 120 300 Output, Urine 400 300 Patient 174 lb Weight Weight Bed scale Measurement Method Physical Exam General Appearance: Alert, Oriented X3, Cooperative, No Acute Distress Cardiovascular: Regular Rate, Normal S1, Normal S2 Lungs: Normal Air Movement Abdomen: Normal Bowel Sounds, Soft, No Tenderness Extremities: No Edema Current Medications: Current Medications Sig/Silvia Start time Last Medication Dose Route Stop Time Status Admin Acetaminophen 650 MG Q6P PRN 09/12 1445 AC PO Allopurinol 100 MG DAILY 09/13 899 AC 09/14 PO 0857 Aspirin Buffered 81 MG DAILY 09/13 899 AC 09/14 PO 0856 Atorvastatin Calcium 80 MG 1700 09/12 1700 AC 09/14 PO 1716 Carvedilol 25 MG BID 09/12 2100 AC 09/14 PO 215 Cholecalciferol 2,000 IU DAILY 09/13 899 AC 09/14 PO 0857 Clopidogrel Bisulfate 75 MG DAILY 09/13 899 AC 09/14 PO 0857 Cyanocobalamin 1,000 MCG DAILY 09/13 899 AC 09/14 PO 0857 Escitalopram Oxalate 5 MG DAILY 09/13 899 AC 09/14 PO 0857 Ferric Sodium 125 MG DAILY 09/14 1500 AC 09/14 Gluconate Complex IV 09/21 0959 1724 Sodium Chloride 100 ML Ferric Sodium 125 MG DAILY 09/14 1327 CAN Gluconate Complex IV 09/21 0901 Furosemide 40 MG 7:30 AM, & 4:30 PM 09/13 2145 AC 09/14 IV 1716 Heparin Sodium 5,000 UNIT Q8 09/12 2200 AC 09/15 (Porcine) SC 0526 Insulin Aspart 0 TIDAC 09/12 1700 AC 09/14 SC 1713 Insulin Detemir 20 UNITS BID 09/12 2100 AC 09/14 SC 2151 Isosorbide 30 MG DAILY 09/13 0900 AC 09/14 Mononitrate PO 0856 Levothyroxine Sodium 0.125 MG DAILY AC 09/13 0700 AC 09/15 PO 0526 Magnesium Oxide 400 MG BID 09/14 0900 AC 09/14 PO 2150 Melatonin 5 MG QPM 09/12 2100 AC 09/14 PO 2151 Patient Medication 1 ED ONE ONE 09/14 1230 DC Teaching ED 09/14 1231 Ranolazine 500 MG BID 09/12 2100 AC 09/14 PO 2151 Tamsulosin HCl 0.4 MG BID 09/12 2100 AC 09/14 PO 2154 Last 24 Hrs of Lab/Prateek Results Last 24 Hrs of Labs/Mics: Laboratory Tests 09/15/17 0641: Anion Gap 14, Estimated GFR 28 L, BUN/Creatinine Ratio 35.7 H, Magnesium 2.0 Assessment/Plan Assessment: 76-year-old gentleman past medical history significant for Ischemic cardiomyopathy ejection fraction ( last EF 30-35%), coronary artery disease status post bare-metal stent to proximal circumflex and first obtuse marginal in March 2017 currently on aspirin and Plavix, vascular dementia, hypertension, chronic kidney disease, peripheral artery disease, sick sinus syndrome status post pacemaker, liver neoplasm with mets to liver currently managed conservatively. Assessment and plan Dyspnea at rest Acute decompensated systolic/ diastolic heart failure continue on telemetry floor continue with IV diuresis with strict I's and O's, -2440 fluid balance since admission Cardiology on board, appreciate recs Echocardiogram done 09/12/17 shows ventricular EF of 4045%, hypokinetic inferior wall and elevated RV pressure of 60 mmHg. Continue Ranexa, carvedilol and Imdur Nephro recomending use of either MARCELO or MRA pulm on board, apprec recs Per pulmon no indication for thoracentesis of his loculated organized left side pleural effusion -overnight pulse Ox to see for desaturation overnight given his worsening TR, worsening dyspnea over few months in the setting of malignancy CTEPH is possiblility, V/Q could be considered. Coronary artery disease Continue aspirin, Plavix and statin ACS ruled out by negative troponins 3 with no acute EKG changes Hypothyroidism Continue levothyroxine Diabetes mellitus Continue Accuchecks, long-acting Levemir at 20 twice daily, NovoLog sliding scale fingersticks 140,140,140 Chronic kidney disease Creatinine 2.3--> 2.1-->2.3, continue to monitor closely Nephrology on board, apprec recs Anemia of chronic Disease Normal Iron/ferritin, vit b12, rectic levels wnl will start on IV Fe day 05/12 Continue home medications of Lexapro, allopurinol and Flomax, -PT to evaluate and treat -Pain control with acetaminophen -Heart Healthy diet -DVT PPx with subcutaneous heparin -DNR/DNI Problem List: 1. Congestive heart failure 2. Insulin dependent diabetes mellitus Pain Ratin Pain Location: na Pain Goal: Pain 4 or less Pain Plan: current regimen Tomorrow's Labs & Rationales: bep/mg Chelsie Arvizu 09/15/17 1114: Attending MD Review Statement Attending Statement Attending MD Statement: examined this patient, discuss w/resident/PA/WASTEWATER OPERATOR, agreed w/resident/PA/WASTEWATER OPERATOR, discussed with family, reviewed EMR data (avail), discussed with nursing, discussed with case mgmt, reviewed images, amended to note Attending Assessment/Plan: Patient seen/exmained bedside. Patient overall slow clinical improvement. vitals and labs noted. his serum creatinine is 2.3 today. Patient dyspnea on rest from acute on chronic CHF exacebration with systolic and diastolic component. ECHO with some improvement in EF as compared to old. Continue with Iv lasix 40 bid as per cardiology and nephrology. Add hydralazine low dose today + c/w nitrates. (unable to use Marcelo inhibitor 2/2 kidney dysfunction). Pulmoanry hypertension c/w diuretics , supprotive care CAD s/p stent on DAPT SSS s/p pacemaker no active issues RCC s/p nephrectomy with solitary kidney functioning. Cr 2.3 stable Chronic kidney disease Stage 3. Monitor creatinine closely while diuresing Valvular disease with Severe MR and TR. Continue diuretics and follow cardiology. Vascular dementia cont supportive care, avoid delirium triggers gi/dvt prophyalxis Dicharge planning as his creatinine improves and diuresis can be converted to PO. Antcipate in next 24-48 hrs.
--- NOTE | 2017-09-15 09:01 | PN- Cardiology ---
Subjective Subjective: Telemetry revealed sinus mechanism with atrial pacing patient resting comfortably. Denies chest pain or unusual shortness of breath. Objective Vital Signs and I&Os Vital Signs Date Time Temp Pulse Resp B/P B/P Pulse O2 O2 Flow FiO2 Mean Ox Delivery Rate 09/15 0841 64 128/62 09/15 0841 64 128/62 09/15 0841 64 128/62 09/15 0841 64 128/62 09/15 0631 97.8 59 20 128/62 95 Room Air 09/15 0000 Room Air 09/14 2154 65 138/60 09/14 2151 65 138/60 09/14 2151 65 138/60 09/14 2128 98.2 65 138/60 93 Room Air 09/14 1403 97.9 63 22 128/60 96 Room Air Intake & Output 09/15 1600 09/15 0800 09/15 0000 09/14 1600 09/14 0800 09/14 0000 Intake Total 120 300 510 550 Output Total 400 300 650 750 625 Balance -280 0 -140 -750 -75 Intake, IV 10 Intake, Oral 120 300 500 550 Number 2 Bowel Movements Output, Urine 400 300 650 750 625 Patient 174 lb 177 lb Weight Weight Bed scale Bed scale Measurement Method Physical Exam: On physical exam he appeared comfortable. Head normocephalic atraumatic Eyes sclera anicteric conjunctiva showed no pallor extraocular muscles were normal Neck no demonstrable jugular venous distention no thyroid masses no palpable nodes Chest lungs anterior lung crespo were clear Heart regular rhythm faint 1/6 to 2/6 systolic murmur Abdomen soft no organomegaly bowel sounds normal Extremities no clubbing cyanosis or edema Neurological no gross motor or sensory deficits Current Medications: Current Medications Sig/Silvia Start time Last Medication Dose Route Stop Time Status Admin Acetaminophen 650 MG Q6P PRN 09/12 1445 AC PO Allopurinol 100 MG DAILY 09/13 899 AC 09/15 PO 0840 Aspirin Buffered 81 MG DAILY 09/13 899 AC 09/15 PO 0841 Atorvastatin Calcium 80 MG 1700 09/12 1700 AC 09/14 PO 1716 Carvedilol 25 MG BID 09/12 2100 AC 09/15 PO 0841 Cholecalciferol 2,000 IU DAILY 09/13 899 AC 09/15 PO 0840 Clopidogrel Bisulfate 75 MG DAILY 09/13 899 AC 09/15 PO 0841 Cyanocobalamin 1,000 MCG DAILY 09/13 0900 AC 09/15 PO 0840 Escitalopram Oxalate 5 MG DAILY 09/13 0900 AC 09/15 PO 0841 Ferric Sodium 125 MG DAILY 09/14 1500 AC 09/14 Gluconate Complex IV 09/21 0959 1724 Sodium Chloride 100 ML Ferric Sodium 125 MG DAILY 09/14 1327 CAN Gluconate Complex IV 09/21 0901 Furosemide 40 MG 7:30 AM, & 4:30 PM 09/13 2145 AC 09/15 IV 0840 Heparin Sodium 5,000 UNIT Q8 09/12 2200 AC 09/15 (Porcine) SC 0526 Insulin Aspart 0 TIDAC 09/12 1700 AC 09/14 SC 1713 Insulin Detemir 20 UNITS BID 09/12 2100 AC 09/15 SC 0840 Isosorbide 30 MG DAILY 09/13 09 AC 09/15 Mononitrate PO 0841 Levothyroxine Sodium 0.125 MG DAILY AC 09/13 0700 AC 09/15 PO 0526 Magnesium Oxide 400 MG BID 09/14 0900 AC 09/15 PO 0841 Melatonin 5 MG QPM 09/12 2100 AC 09/14 PO 2151 Patient Medication 1 ED ONE ONE 09/14 1230 DC Teaching ED 09/14 1231 Ranolazine 500 MG BID 09/12 2100 AC 09/15 PO 0841 Tamsulosin HCl 0.4 MG BID 09/12 2100 AC 09/15 PO 0841 Results Last 48 Hrs of Labs/Mics: Laboratory Tests 09/15/17 0641: Anion Gap 14, Estimated GFR 28 L, BUN/Creatinine Ratio 35.7 H, Magnesium 2.0 09/14/17 0627: Anion Gap 15, Estimated GFR 31 L, BUN/Creatinine Ratio 36.7 H, Magnesium 1.8 09/13/17 1830: Retic Count 3.87 H 09/13/17 0958: Mfs-X-Cusfpjplnee Pept Cancelled Assessment/Plan Assessment/Plan In summary this 76-year-old gentleman has a following problems 1. 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 2. Coronary artery disease as noted above with bare-metal stent to the proximal circumflex and first obtuse marginal March 2017 3. Ischemic cardiomyopathy ejection fraction 30-35%; now 40-45% 4. Vascular dementia 5. Status post nephrectomy 6. Hypertension 7. Chronic renal insufficiency with a creatinine ranging from 2.0-2.2 8. Peripheral arterial disease 9. Sick sinus syndrome status post pacemaker 10. Liver neoplasm most likely metastatic being managed conservatively 11. Mitral regurgitation/pulmonary hypertension He appears to have negative fluid balance and responding well to intravenous diuretics. He has significant mitral regurgitation probably severe with mitral regurgitation jet in the pulmonary veins and systolic pulmonary vein reversal. He would benefit from further afterload reduction. If ANKIT inhibitors cannot be immediately considered because of renal insufficiency would suggest combination of hydralazine and nitrates. Hydralazine 25 mg p.o. twice daily and isosorbide mononitrate 60 mg once a day. Follow-up chest x-ray. Can possibly shift from intravenous diuretics to oral Lasix 80 mg once a day. Continue telemetry? Yes
--- NOTE | 2017-09-15 10:53 | PN- Nephrology ---
Assessment/Plan Nephrology Assessment: Stage III/IV CKD - 2/2 diabetes, HTN, and reduced nephron mass (RCC s/p nephrectomy). SOB - Appears to be multifactorial including pulm edema (?improving), L sided pleural effusion (noted to be exudative in the past). Has new severe pulm HTN which seems out of proportion to the amount of fluid he has one exam/imaging. Should note that his TTE now demonstrates severe MR. He does seem to be tolerating diuresis for now although I honestly don't know how much more diuresis he will tolerate before his SCr really jumps up. CHF - Reduced LVEF - potassium is OK although given reduced eGFR, need to be careful with initiation of RAAS inhibition (not sure that he could tolerate both an ANKIT-I and mineralicorticoid antagonist). If we are trying to actively diuresis him, I would hold off on initiating an ANKIT-I as it will just confuse any bump in his SCr. Perhaps initiation on discharge with f/u labs within a week would be more reasonable. Anemia - Hg below goal for CKD - Iron stores borderline - started on IV iron. Suggestion: -OK to cont 40mg IV lasix BID for at least another day - would stop if SCr up any further tomorrow AM -OK to initiate RAAS inhibition but would hold off while actively diuresing; can initiate on discharge with plans to f/u labs in 1 week -Cont ferrlecit 125mg every other day x8 doses Please call [phone] with ?'s Subjective Subjective: SCr 2.3 Breathing is "OK" No other complaints Objective Vital Signs and I&Os Vital Signs Date Time Temp Pulse Resp B/P B/P Pulse O2 O2 Flow FiO2 Mean Ox Delivery Rate 09/15 0841 64 128/62 09/15 0841 64 128/62 09/15 0841 64 128/62 09/15 0841 64 128/62 09/15 0631 97.8 59 20 128/62 95 Room Air 09/15 0000 Room Air 09/14 2154 65 138/60 09/14 2151 65 138/60 09/14 2151 65 138/60 09/148 98.2 65 138/60 93 Room Air 09/14 1403 97.9 63 22 128/60 96 Room Air Intake & Output 09/15 1600 09/15 0400 06/13 1600 09/14 0400 09/13 1600 09/13 0400 Intake Total 120 300 510 550 460 400 Output Total 431 461 3811 625 1005 400 Balance -280 0 -890 -75 -545 0 Intake, IV 10 Intake, Oral 120 300 500 550 460 400 Number 2 0 Bowel Movements Output, Urine 388 765 4547 625 1005 400 Patient 174 lb 177 lb 178 lb Weight Weight Bed scale Bed scale Measurement Method Physical Exam: Gen - ok appearing HEENT - JVP not visible CV - RRR, no m/r/g Chest - L sided crackles, no wheezes/rhonchi Abd - soft, NTND Ext - warm, no edema Neuro - alert, conversive Current Medications: Current Medications Sig/Silvia Start time Last Medication Dose Route Stop Time Status Admin Acetaminophen 650 MG Q6P PRN 09/12 1445 AC PO Allopurinol 100 MG DAILY 09/13 0900 AC 09/15 PO 0840 Aspirin Buffered 81 MG DAILY 09/13 0900 AC 09/15 PO 0841 Atorvastatin Calcium 80 MG 1700 09/12 170 AC 09/14 PO 1716 Carvedilol 25 MG BID 09/12 2100 AC 09/15 PO 0841 Cholecalciferol 2,000 IU DAILY 09/13 0900 AC 09/15 PO 0840 Clopidogrel Bisulfate 75 MG DAILY 09/13 09 AC 09/15 PO 0841 Cyanocobalamin 1,000 MCG DAILY 09/13 0900 AC 09/15 PO 0840 Escitalopram Oxalate 5 MG DAILY 09/13 0900 AC 09/15 PO 0841 Ferric Sodium 125 MG DAILY 09/14 1500 AC 09/15 Gluconate Complex IV 09/21 0959 0944 Sodium Chloride 100 ML Ferric Sodium 125 MG DAILY 09/14 1327 CAN Gluconate Complex IV 09/21 0901 Furosemide 40 MG 7:30 AM, & 4:30 PM 09/13 2145 AC 09/15 IV 0840 Heparin Sodium 5,000 UNIT Q8 09/12 2200 AC 09/15 (Porcine) SC 0526 Hydralazine HCl 25 MG BID 09/15 1011 AC PO Insulin Aspart 0 TIDAC 09/12 1700 AC 09/14 SC 1713 Insulin Detemir 20 UNITS BID 09/12 2100 AC 09/15 SC 0840 Isosorbide 30 MG DAILY 09/13 0900 AC 09/15 Mononitrate PO 0841 Levothyroxine Sodium 0.125 MG DAILY AC 09/13 0700 AC 09/15 PO 0526 Magnesium Oxide 400 MG BID 09/14 0900 AC 09/15 PO 0841 Melatonin 5 MG QPM 09/12 2099 09/14 PO 2151 Patient Medication 1 ED ONE ONE 09/14 1230 DC Teaching ED 09/14 1231 Ranolazine 500 MG BID 09/12 2099 AC 09/15 PO 0841 Tamsulosin HCl 0.4 MG BID 09/12 2099 AC 09/15 PO 0841 Results Pertinent Lab Results: Laboratory Tests 09/15 09/14 09/13 09/13 0641 0627 1830 0958 Chemistry Sodium (137 - 145 mmol/L) 141 140 Potassium (3.5 - 5.1 mmol/L) 4.1 4.2 Chloride (98 - 107 mmol/L) 104 104 Carbon Dioxide (22 - 30 mmol/L) 24 21 L Anion Gap (5 - 16) 14 15 BUN (9 - 20 mg/dL) 82 H 77 H Creatinine (0.7 - 1.2 mg/dL) 2.3 H 2.1 H Estimated GFR (>60 ml/min) 28 L 31 L BUN/Creatinine Ratio (7 - 25 %) 35.7 H 36.7 H Magnesium (1.6 - 2.3 mg/dL) 2.0 1.8 Cot-G-Nxlrhalmios Pept Cancelled Hematology Retic Count (0.5 - 2.0 %) 3.87 H 09/13 09/12 09/12 0647 2250 1602 Chemistry Sodium (137 - 145 mmol/L) 141 Potassium (3.5 - 5.1 mmol/L) 4.5 Chloride (98 - 107 mmol/L) 106 Carbon Dioxide (22 - 30 mmol/L) 23 Anion Gap (5 - 16) 12 BUN (9 - 20 mg/dL) 76 H Creatinine (0.7 - 1.2 mg/dL) 2.3 H Estimated GFR (>60 ml/min) 28 L BUN/Creatinine Ratio (7 - 25 %) 33.0 H Magnesium (1.6 - 2.3 mg/dL) 1.8 Iron (49 - 181 ug/dL) 53 TIBC (261 - 462 ug/dL) 264 Ferritin (17.9 - 464 ng/mL) 113.0 Troponin I (<0.11 ng/ml) 0.02 0.02 Uon-K-Farrirfihde Pept (<125 pg/mL) 29777 H Vitamin B12 (239 - 931 pg/mL) 893 Folate (2.76 - 20.0 ng/mL) 14.4 Hematology CBC w Diff NO MAN DIFF REQ WBC (4.8 - 10.8 /CUMM) 7.2 RBC (4.70 - 6.10 /CUMM) 3.02 L Hgb (14.0 - 18.0 G/DL) 9.5 L Hct (42 - 52 %) 28.0 L MCV (80.0 - 94.0 FL) 92.6 MCH (27.0 - 31.0 PG) 31.4 H MCHC (33.0 - 37.0 G/DL) 33.9 RDW (11.5 - 14.5 %) 18.4 H Plt Count (130 - 400 /CUMM) 270 MPV (7.4 - 10.4 FL) 7.4 Gran % (42.2 - 75.2 %) 70.3 Lymphocytes % (20.5 - 51.1 %) 11.6 L Monocytes % (1.7 - 9.3 %) 12.0 H Eosinophils % (0 - 5 %) 5.6 H Basophils % (0.0 - 2.0 %) 0.5 Absolute Granulocytes (1.4 - 6.5 /CUMM) 5.0 Absolute Lymphocytes (1.2 - 3.4 /CUMM) 0.8 L Absolute Monocytes (0.10 - 0.60 /CUMM) 0.9 H Absolute Eosinophils (0.0 - 0.7 /CUMM) 0.4 Absolute Basophils (0.0 - 0.2 /CUMM) 0 Imaging/Other Studies: None new
--- NOTE | 2017-09-15 13:42 | PN- Pulmonary ---
Subjective HPI/Critical Care Issues: Denies chest pain or unusual shortness of breath. Objective Current Medications: Current Medications Sig/Silvia Start time Last Medication Dose Route Stop Time Status Admin Acetaminophen 650 MG Q6P PRN 09/12 1445 AC PO Allopurinol 100 MG DAILY 09/13 09 AC 09/15 PO 0840 Aspirin Buffered 81 MG DAILY 09/13 0900 AC 09/15 PO 0841 Atorvastatin Calcium 80 MG 1700 09/12 1700 AC 09/14 PO 1716 Carvedilol 25 MG BID 09/12 2100 AC 09/15 PO 0841 Cholecalciferol 2,000 IU DAILY 09/13 09 AC 09/15 PO 0840 Clopidogrel Bisulfate 75 MG DAILY 09/13 09 AC 09/15 PO 0841 Cyanocobalamin 1,000 MCG DAILY 09/13 09 AC 09/15 PO 0840 Escitalopram Oxalate 5 MG DAILY 09/13 09 AC 09/15 PO 0841 Ferric Sodium 125 MG DAILY 09/14 1500 AC 09/15 Gluconate Complex IV 09/21 0959 0944 Sodium Chloride 100 ML Ferric Sodium 125 MG DAILY 09/14 1327 CAN Gluconate Complex IV 09/21 0901 Furosemide 40 MG 7:30 AM, & 4:30 PM 09/13 2145 AC 09/15 IV 0840 Heparin Sodium 5,000 UNIT Q8 09/12 2200 AC 09/15 (Porcine) SC 1326 Hydralazine HCl 25 MG BID 09/15 1011 AC 09/15 PO 1229 Insulin Aspart 0 TIDAC 09/12 1700 AC 09/15 SC 1156 Insulin Detemir 20 UNITS BID 09/12 2099 AC 09/15 SC 0840 Isosorbide 30 MG DAILY 09/13 09 AC 09/15 Mononitrate PO 0841 Levothyroxine Sodium 0.125 MG DAILY AC 09/13 0700 AC 09/15 PO 0526 Magnesium Oxide 400 MG BID 09/14 09 AC 09/15 PO 0841 Melatonin 5 MG QPM 09/12 2099 AC 09/14 PO 2151 Ranolazine 500 MG BID 09/12 2100 AC 09/15 PO 0841 Tamsulosin HCl 0.4 MG BID 09/12 2099 AC 09/15 PO 0841 Vital Signs & I&O Last 24 Hrs of Vitals and I&O: Vital Signs Date Time Temp Pulse Resp B/P B/P Pulse O2 O2 Flow FiO2 Mean Ox Delivery Rate 09/15 1229 62 110/60 09/15 0841 64 128/62 09/15 0841 64 128/62 09/15 0841 64 128/62 09/15 0841 64 128/62 09/15 0631 97.8 59 20 128/62 95 Room Air 09/15 0000 Room Air 09/14 2154 65 138/60 09/14 2151 65 138/60 09/14 2151 65 138/60 09/14 2128 98.2 65 138/60 93 Room Air 09/14 1403 97.9 63 22 128/60 96 Room Air Intake & Output 09/15 1600 09/15 0800 09/15 0000 Intake Total 120 300 Output Total 400 300 Balance -280 0 Intake, Oral 120 300 Output, Urine 400 300 Patient 174 lb Weight Weight Bed scale Measurement Method Laboratory Tests 09/15 09/14 09/13 0641 0627 1830 Chemistry Sodium (137 - 145 mmol/L) 141 140 Potassium (3.5 - 5.1 mmol/L) 4.1 4.2 Chloride (98 - 107 mmol/L) 104 104 Carbon Dioxide (22 - 30 mmol/L) 24 21 L Anion Gap (5 - 16) 14 15 BUN (9 - 20 mg/dL) 82 H 77 H Creatinine (0.7 - 1.2 mg/dL) 2.3 H 2.1 H Estimated GFR (>60 ml/min) 28 L 31 L BUN/Creatinine Ratio (7 - 25 %) 35.7 H 36.7 H Magnesium (1.6 - 2.3 mg/dL) 2.0 1.8 Hematology Retic Count (0.5 - 2.0 %) 3.87 H Impression/Plan Impression/Plan Impression/Plan: General Appearance: awake, mild distress Head: atraumatic, normal appearance Respiratory: crackles Cardiovascular: edema, gallop/S3 Gastrointestinal: soft, non-tender Extremities: swelling 76-year-old male PMH of Vascular dementia, CAD, cardiomyopathy, coronary artery disease, myocardial infarction, cardiomyopathy, systolic congestive heart failure, hypertension, hyperlipidemia, diabetes mellitus, pneumonia, sick sinus syndrome status post pacemaker placement 2014 Htn, HLD, STEMI, CHF, right carotid complete occlusion, 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 Patient now has severe mitral regurgitation by echocardiogram with reversal of flow into the pulmonary veins. Most of his symptoms are related to mixed chronic systolic and diastolic heart failure with low ejection fraction and valvular heart disease * Chronic effusion especially in the left with previous thoracentesis which had not revealed any involvement of liposarcoma. This was an exudative pleural fluid. Patient now has chronic stable left effusion which has been present since 2016. No clinical evidence suggestive of any other malignancy at this present time * CKD with richelle * Significant vascular dementia with worsening performance status * Peripheral vascular disease with carotid endarterectomy * Diabetes, and peripheral vascular disease, BPH, hypertension, gout, heart disease with chronic diastolic and systolic heart failure. * Chronic kidney disease with previous nephrectomy * Enlarging liver mass which is prob liposarcoma met which is increasing in size REC Oxygen if needed No indication to do thoracentesis in the left side at this time as he has loculated chronic organized effusion No other workup for pulmonary hypertension is necessary at this time\ Diuresis per cardiology Order overnight oximetry to see whether he has cyclical desaturation to rule out central apnea versus obstructive sleep apnea We will follow closely
[2017-09-15 14:18] VITALS: BP 108/62
[2017-09-15 21:46] VITALS: BP 128/64
[2017-09-16 06:27] VITALS: BP 122/62
--- NOTE | 2017-09-16 08:00 | PN- Housestaff ---
Denise Thornton 09/16/17 0759: Subjective Follow-up For: Acute on chronic systolic/diastolic CHF exacerbation Severe pulm htn Anemia Of chronic disease Subjective: Seen and examined patient. States that he is feeling better today. Offers no complaints Review of Systems Constitutional: Denies: see HPI. Objective Last 24 Hrs of Vital Signs/I&O Vital Signs Date Time Temp Pulse Resp B/P B/P Pulse O2 O2 Flow FiO2 Mean Ox Delivery Rate 09/16 1449 97.6 62 20 124/64 97 Room Air 09/16 0843 66 122/62 09/16 0843 66 122/62 09/16 0843 66 122/62 09/16 0842 66 122/62 09/16 0842 66 122/62 09/16 0800 94 Room Air Room Air 09/16 0627 97.8 60 22 122/62 95 Room Air 09/15 2146 97.8 61 20 128/64 94 Room Air 09/15 2121 Room Air 09/15 2038 106/60 09/15 2038 68 106/60 09/15 2038 106/60 09/15 2037 68 106/60 09/15 1600 95 Room Air Room Air Intake & Output 09/16 1600 09/16 0800 09/16 0000 Intake Total 770 220 100 Output Total 400 400 375 Balance 370 -180 -275 Intake, IV 150 Intake, Oral 620 220 100 Number 1 Bowel Movements Output, Urine 400 400 375 Patient 174 lb Weight Weight Bed scale Measurement Method Physical Exam General Appearance: Alert, Oriented X3, Cooperative, No Acute Distress Cardiovascular: Regular Rate, Normal S1, Normal S2 Lungs: Normal Air Movement Abdomen: Normal Bowel Sounds, Soft, No Tenderness Extremities: No Edema Current Medications: Current Medications Sig/Silvia Start time Last Medication Dose Route Stop Time Status Admin Acetaminophen 650 MG .STK-MED ONE 09/15 1654 DC PO 09/15 1655 Acetaminophen 650 MG Q6P PRN 09/12 1445 AC 09/15 PO 1656 Allopurinol 100 MG DAILY 09/13 899 AC 09/16 PO 0842 Aspirin Buffered 81 MG DAILY 09/13 09 AC 09/16 PO 0843 Atorvastatin Calcium 80 MG 1700 09/12 1700 AC 09/15 PO 1657 Carvedilol 25 MG BID 09/12 2100 AC 09/16 PO 0843 Cholecalciferol 2,000 IU DAILY 09/13 0900 AC 09/16 PO 0842 Clopidogrel Bisulfate 75 MG DAILY 09/13 0900 AC 09/16 PO 0842 Cyanocobalamin 1,000 MCG DAILY 09/13 0900 AC 09/16 PO 0843 Escitalopram Oxalate 5 MG DAILY 09/13 0900 AC 09/16 PO 0843 Ferric Sodium 125 MG Q48 09/18 0900 AC Gluconate Complex IV 09/26 0959 Sodium Chloride 100 ML Ferric Sodium 125 MG DAILY 09/14 1500 DC 09/16 Gluconate Complex IV 09/21 0959 0842 Sodium Chloride 100 ML Furosemide 80 MG DAILY 09/16 0900 AC 09/16 PO 0843 Furosemide 40 MG 7:30 AM, & 4:30 PM 09/13 2145 DC 09/15 IV 09/16 0000 1656 Heparin Sodium 5,000 UNIT Q8 09/12 2200 AC 09/16 (Porcine) SC 1421 Hydralazine HCl 25 MG BID 09/15 1011 AC 09/16 PO 0842 Insulin Aspart 0 TIDAC 09/12 1700 AC 09/16 SC 1232 Insulin Detemir 20 UNITS BID 09/12 2100 AC 09/16 SC 0843 Isosorbide 60 MG DAILY 09/16 09 AC 09/16 Mononitrate PO 0842 Isosorbide 30 MG DAILY 09/13 09 DC 09/15 Mononitrate PO 0841 Levothyroxine Sodium 0.125 MG DAILY AC 09/13 0700 AC 09/16 PO 0625 Losartan Potassium 25 MG DAILY 09/16 1315 AC PO Magnesium Oxide 400 MG BID 09/14 0900 AC 09/16 PO 0843 Melatonin 5 MG QPM 09/12 2100 AC 09/15 PO 2037 Patient Medication 1 ED ONE ONE 09/15 1645 DC Teaching ED 09/15 1646 Ranolazine 500 MG BID 09/12 2100 AC 09/16 PO 0843 Tamsulosin HCl 0.4 MG BID 09/12 2100 AC 09/16 PO 0843 Last 24 Hrs of Lab/Prateek Results Last 24 Hrs of Labs/Mics: Laboratory Tests 09/16/17 0800: Pulse Ox Probe Site RP, ABG O2 Sat Calc/Juice 95.0, O2 Concentration % RA, O2 Delivery Method RA 09/16/17 0618: Anion Gap 12, Estimated GFR 28 L, BUN/Creatinine Ratio 36.5 H, Magnesium 2.1 Assessment/Plan Assessment: 76-year-old gentleman past medical history significant for Ischemic cardiomyopathy ejection fraction ( last EF 30-35%), coronary artery disease status post bare-metal stent to proximal circumflex and first obtuse marginal in March 2017 currently on aspirin and Plavix, vascular dementia, hypertension, chronic kidney disease, peripheral artery disease, sick sinus syndrome status post pacemaker, liver neoplasm with mets to liver currently managed conservatively. Assessment and plan Dyspnea at rest Acute decompensated systolic/ diastolic heart failure Transitioned to p.o. Lasix Cardiology on board, appreciate recs Echocardiogram done 09/12/17 shows ventricular EF of 4045%, hypokinetic inferior wall and elevated RV pressure of 60 mmHg. Continue Ranexa, carvedilol and hydralazine and Imdur will start losartan 25mg daily today pulm on board, apprec recs Per pulmon no indication for thoracentesis of his loculated organized left side pleural effusion -overnight pulse Ox he had more that 10 minutes of desaturation to less than 89% . He will be discharged on supplemental nocturnal oxygen at 2 L nasal cannula Coronary artery disease Continue aspirin, Plavix and statin ACS ruled out by negative troponins 3 with no acute EKG changes Hypothyroidism Continue levothyroxine Diabetes mellitus Continue Accuchecks, long-acting Levemir at 20 twice daily, NovoLog sliding scale fingersticks 140,140,140 Chronic kidney disease Creatinine 2.3--> 2.1-->2.3-->2.3, continue to monitor closely Nephrology on board, apprec recs Advised to repeat his BMP on Tuesday Anemia of chronic Disease Normal Iron/ferritin, vit b12, rectic levels wnl He will continue his IV iron infusion every other day at the infusion center to complete a total of 8 doses Continue home medications of Lexapro, allopurinol and Flomax, -PT to evaluate and treat -Pain control with acetaminophen -Heart Healthy diet -DVT PPx with subcutaneous heparin -DNR/DNI Stable for discharge with home health services today Problem List: 1. S/p nephrectomy 2. Diabetes 3. Hypothyroid Pain Ratin Pain Location: na Pain Goal: Pain 4 or less Pain Plan: current regimen Tomorrow's Labs & Rationales: none required Chelsie Arvizu 09/16/17 1210: Attending MD Review Statement Attending Statement Attending MD Statement: examined this patient, discuss w/resident/PA/LOGISTICS INTERN, agreed w/resident/PA/LOGISTICS INTERN, discussed with family, reviewed EMR data (avail), discussed with nursing, discussed with case mgmt, reviewed images, amended to note Attending Assessment/Plan: Patient seen/examined with no new complaints. His creatinine is 2.3 today. He is being diuresed and now on Po lasix 80 mg daily as per cardiology and nephrology. He has been receiving iv iron for anemia of chronic disease CKD, rest of doses at o/p infusion center oxygen desaturation at night, follow pulmoanry and arrange oxygen at night CKD with stable function Follow outpatient cardiology, nephrology, and pulmoanry after dsicharge.
--- NOTE | 2017-09-16 08:50 | Patient Discharge Instructions ---
Discharge Instructions General Discharge Information You were seen/treated for: shortness breath due to heart failure Special Instructions: Please follow-up with your primary care doctor within 2 weeks of discharge Please follow-up with your buncher hand within 1 week of discharge please follow up with you career services manager within 1 week of discharge Your will need to check a BEP for your kidney function on 09/19/17 We have added a new medication called hydralazine and losartan and increased your imdur please take it as directed You will need to use oxygen at night while you sleep. Please follow up with your dinkey dispatcher Dr. Faria You will need IV Iron everyother day for 5 more doses. An appointment has been make for you at the infusion clinic, on tuesday at 2 pm. They can be reached at [phone] Acute Coronary Syndrome Inclusion Criteria At DC or during hospital stay patient has or had the following: ACS DIAGNOSIS No Discharge Core Measures Meds if any: Prescribed or Continued at Discharge ANKIT/ARB if EF <40% No Aspirin Yes Beta-Akua Yes Statin Yes Meds if any: NOT Prescribed or Continued at Discharge No ANKIT/ARB d/t Medical Contraindication Congestive Heart Failure Inclusion Criteria At DC or during hospital stay patient has or had the following: CHF DIAGNOSIS Yes Discharge Core Measures Meds if any: Prescribed or Continued at Discharge Meds if any: NOT Prescribed or Continued at Discharge Cerebrovascular accident Inclusion Criteria At DC or during hospital stay patient has or had the following: CVA/TIA Diagnosis No Discharge Core Measures Meds if any: Prescribed or Continued at Discharge Meds if any: NOT Prescribed or Continued at Discharge Venous thromboembolism Inclusion Criteria VTE Diagnosis No VTE Type NONE VTE Confirmed by (Test) NONE Discharge Core Measures - Per Current guidelines, there needs to be overlap - treatment for the first 5 days of Warfarin therapy. - If discharged on Warfarin prior to 5 days of - overlap therapy, the patient will need to be - assessed for post discharge needs including - *Post discharge parental anticoagulation - *Warfarin and/or parental anticoagulation education - *Follow up date to check INR post discharge At least 5 days overlap therapy as Inpatient No Meds if any: Prescribed or Continued at Discharge Note: Overlap Therapy is Warfarin and Anticoagulant Meds if any: NOT Prescribed or Continued at Discharge
--- NOTE | 2017-09-16 11:03 | PN- Cardiology ---
Subjective Subjective: Feels well today. He has been able to ambulate without any symptoms. Objective Vital Signs and I&Os Vital Signs Date Time Temp Pulse Resp B/P B/P Pulse O2 O2 Flow FiO2 Mean Ox Delivery Rate 09/16 0843 66 122/62 09/16 0843 66 122/62 09/16 0843 66 122/62 09/16 0842 66 122/62 09/16 0842 66 122/62 09/16 0627 97.8 60 22 122/62 95 Room Air 09/15 2146 97.8 61 20 128/64 94 Room Air 09/15 2121 Room Air 09/15 2038 106/60 09/15 2038 68 106/60 09/15 2038 106/60 09/15 2037 68 106/60 09/15 1600 95 Room Air Room Air 09/15 1418 97.5 66 20 108/62 97 Room Air 09/15 1229 62 110/60 Intake & Output 09/16 1600 09/16 0800 09/16 0000 09/15 1600 09/15 0800 09/15 0000 Intake Total 220 100 800 120 300 Output Total 400 375 750 400 300 Balance -180 -275 50 -280 0 Intake, IV 120 Intake, Oral 220 100 680 120 300 Number 3 Bowel Movements Output, Urine 400 375 750 400 300 Patient 174 lb 174 lb Weight Weight Bed scale Bed scale Measurement Method Physical Exam: General: no apparent distress. Alert. Eyes: No obvious scleral icterus. HEENT: No jugular venous distention or abnormal jugular venous pulsations. Cardiovascular: Normal intensity S1/S2. Pacemaker noted Respiratory: Mildly decreased air entry at the left base Abdomen: Soft, nontender with no guarding or rebound tenderness. Musculoskeletal: No clubbing or cyanosis noted; no edema Skin: warm Neurologic: No gross focal deficits noted. Current Medications: Current Medications Sig/Silvia Start time Last Medication Dose Route Stop Time Status Admin Acetaminophen 650 MG .STK-MED ONE 09/15 1654 DC PO 09/15 165 Acetaminophen 650 MG Q6P PRN 09/12 1445 AC 09/15 PO 1656 Allopurinol 100 MG DAILY 09/13 0900 AC 09/16 PO 0842 Aspirin Buffered 81 MG DAILY 09/13 0900 AC 09/16 PO 0843 Atorvastatin Calcium 80 MG 1700 09/12 1700 AC 09/15 PO 1657 Carvedilol 25 MG BID 09/12 2100 AC 09/16 PO 0843 Cholecalciferol 2,000 IU DAILY 09/13 0900 AC 09/16 PO 0842 Clopidogrel Bisulfate 75 MG DAILY 09/13 0900 AC 09/16 PO 0842 Cyanocobalamin 1,000 MCG DAILY 09/13 0900 AC 09/16 PO 0843 Escitalopram Oxalate 5 MG DAILY 09/13 0900 AC 09/16 PO 0843 Ferric Sodium 125 MG DAILY 09/14 1500 AC 09/16 Gluconate Complex IV 09/21 0959 0842 Sodium Chloride 100 ML Furosemide 80 MG DAILY 09/16 0900 AC 09/16 PO 0843 Furosemide 40 MG 7:30 AM, & 4:30 PM 09/13 2145 DC 09/15 IV 09/16 0000 1656 Heparin Sodium 5,000 UNIT Q8 09/12 2200 AC 09/16 (Porcine) SC 0625 Hydralazine HCl 25 MG BID 09/15 1011 AC 09/16 PO 0842 Insulin Aspart 0 TIDAC 09/12 1700 AC 09/15 SC 1656 Insulin Detemir 20 UNITS BID 09/12 2100 AC 09/16 SC 0843 Isosorbide 60 MG DAILY 09/16 09 AC 09/16 Mononitrate PO 0842 Isosorbide 30 MG DAILY 09/13 09 DC 09/15 Mononitrate PO 0841 Levothyroxine Sodium 0.125 MG DAILY AC 09/13 0700 AC 09/16 PO 0625 Magnesium Oxide 400 MG BID 09/14 0900 AC 09/16 PO 0843 Melatonin 5 MG QPM 09/12 2100 AC 09/15 PO 2037 Patient Medication 1 ED ONE ONE 09/15 1645 DC Teaching ED 09/15 1646 Ranolazine 500 MG BID 09/12 2099 AC 09/16 PO 0843 Tamsulosin HCl 0.4 MG BID 09/12 2100 AC 09/16 PO 0843 Results Last 48 Hrs of Labs/Mics: Laboratory Tests 09/16/17 0800: Pulse Ox Probe Site RP, ABG O2 Sat Calc/Juice 95.0, O2 Concentration % RA, O2 Delivery Method RA 09/16/17 0618: Anion Gap 12, Estimated GFR 28 L, BUN/Creatinine Ratio 36.5 H, Magnesium 2.1 09/15/17 0641: Anion Gap 14, Estimated GFR 28 L, BUN/Creatinine Ratio 35.7 H, Magnesium 2.0 Recent Imaging Studies: Telemetry tracings were personally reviewed and show atrial pacing Assessment/Plan Assessment/Plan 1. 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 2. Coronary artery disease as noted above with bare-metal stent to the proximal circumflex and first obtuse marginal March 2017 3. Ischemic cardiomyopathy ejection fraction 30-35%; now 40-45% 4. Vascular dementia 5. Status post nephrectomy 6. Hypertension 7. Chronic renal insufficiency with a creatinine ranging from 2.0-2.2 8. Peripheral arterial disease 9. Sick sinus syndrome status post pacemaker 10. Liver neoplasm most likely metastatic being managed conservatively 11. Mitral regurgitation/pulmonary hypertension Patient is doing well and is now on oral Lasix. Agree with the afterload reduction for the mitral regurgitation with low ejection fraction. He is receiving IV iron for the anemia. If no objection from nephrology will plan to initiate on low-dose ARB therapy with close monitoring of his kidney function after discharge. He should follow-up in our office within 1 week of discharge. Tunde Clayton MD [facility] Continue telemetry? No
[2017-09-16] MEDS ORDERED: HYDRALAZINE HCL25 M1 PO ×2 (13:32→16:27)
[2017-09-16] MEDS ORDERED: LOSARTAN POTASS25 M1 PO ×2 (13:32→16:27)
[2017-09-16] MEDS ORDERED: LASIX40 M1 PO (13:34)
--- NOTE | 2017-09-16 13:40 | PN- Nephrology ---
Assessment/Plan Nephrology Assessment: Stage III/IV CKD - 2/2 diabetes, HTN, and reduced nephron mass (RCC s/p nephrectomy). SOB - Improved. Appears to be related to pulm edema in the setting of severe MR. CHF - Reduced LVEF with valvular disease. Now that he is not being aggressively diuresed, no objection to starting low dose ARB. Anemia - Hg below goal for CKD - Iron stores borderline - started on IV iron. Suggestion: -Agree with transitioning to 80mg PO lasix daily -OK to start low dose ARB - should f/u labs in 1-2 weeks given this as well as increased dose of lasix compared to prior -Cont ferrlecit 125mg every other day x8 doses (will need arranged as outpatient ) Pt has appt with Dr. Claros on 10/12 at 3:15pm Please call [phone] with ?'s Subjective Subjective: SCr stable at 2.3 1525cc UOP - had gotten 40mg IV lasix BID Transitioned to 80mg PO lasix daily Objective Vital Signs and I&Os Vital Signs Date Time Temp Pulse Resp B/P B/P Pulse O2 O2 Flow FiO2 Mean Ox Delivery Rate 09/16 0843 66 122/62 09/16 0843 66 122/62 09/16 0843 66 122/62 09/16 0842 66 122/62 09/16 0842 66 122/62 09/16 0800 94 Room Air Room Air 09/16 0627 97.8 60 22 122/62 95 Room Air 09/15 2146 97.8 61 20 128/64 94 Room Air 09/15 2121 Room Air 09/15 2037 106/60 09/15 2037 68 106/60 09/158 106/60 09/15 203 68 106/60 09/15 1600 95 Room Air Room Air 09/15 1418 97.5 66 20 108/62 97 Room Air Intake & Output 09/16 0400 09/15 1600 09/15 0400 09/14 0400 Intake Total 220 100 920 300 510 550 Output Total 673 237 1267 300 1400 625 Balance -180 -275 -230 0 -890 -75 Intake, IV 120 10 Intake, Oral 220 100 800 300 500 550 Number 3 2 Bowel Movements Output, Urine 390 265 2097 300 1400 625 Patient 174 lb 174 lb 177 lb Weight Weight Bed scale Bed scale Bed scale Measurement Method Physical Exam: Gen - ok appearing HEENT - supple CV - RRR, no m/r/g Chest - now clear Abd - soft, NTND Ext - warm, no edema Neuro - alert, conversive Current Medications: Current Medications Sig/Silvia Start time Last Medication Dose Route Stop Time Status Admin Acetaminophen 650 MG .STK-MED ONE 09/15 1654 DC PO 09/15 1655 Acetaminophen 650 MG Q6P PRN 09/12 1445 AC 09/15 PO 1656 Allopurinol 100 MG DAILY 09/13 0900 AC 09/16 PO 0842 Aspirin Buffered 81 MG DAILY 09/13 0900 AC 09/16 PO 0843 Atorvastatin Calcium 80 MG 1700 09/12 1700 AC 09/15 PO 1657 Carvedilol 25 MG BID 09/12 2100 AC 09/16 PO 0843 Cholecalciferol 2,000 IU DAILY 09/13 0900 AC 09/16 PO 0842 Clopidogrel Bisulfate 75 MG DAILY 09/13 0900 AC 09/16 PO 0842 Cyanocobalamin 1,000 MCG DAILY 09/13 0900 AC 09/16 PO 0843 Escitalopram Oxalate 5 MG DAILY 09/13 0900 AC 09/16 PO 0843 Ferric Sodium 125 MG Q48 09/18 0900 UNVr Gluconate Complex IV 09/26 0959 Sodium Chloride 100 ML Ferric Sodium 125 MG DAILY 09/14 1500 DC 09/16 Gluconate Complex IV 09/21 0959 0842 Sodium Chloride 100 ML Furosemide 80 MG DAILY 09/16 0900 AC 09/16 PO 0843 Furosemide 40 MG 7:30 AM, & 4:30 PM 09/13 2145 DC 09/15 IV 09/16 0000 1656 Heparin Sodium 5,000 UNIT Q8 09/12 2200 AC 09/16 (Porcine) SC 0625 Hydralazine HCl 25 MG BID 09/15 1011 AC 09/16 PO 0842 Insulin Aspart 0 TIDAC 09/12 1700 AC 09/16 SC 1232 Insulin Detemir 20 UNITS BID 09/12 2100 AC 09/16 SC 0843 Isosorbide 60 MG DAILY 09/16 0900 AC 09/16 Mononitrate PO 0842 Isosorbide 30 MG DAILY 09/13 0900 DC 09/15 Mononitrate PO 0841 Levothyroxine Sodium 0.125 MG DAILY AC 09/13 0700 AC 09/16 PO 0625 Losartan Potassium 25 MG DAILY 09/16 1315 AC PO Magnesium Oxide 400 MG BID 09/14 0900 AC 09/16 PO 0843 Melatonin 5 MG QPM 09/12 2099 AC 09/15 PO 203 Patient Medication 1 ED ONE ONE 09/15 1645 DC Teaching ED 09/15 1646 Ranolazine 500 MG BID 09/12 2099 AC 09/16 PO 0843 Tamsulosin HCl 0.4 MG BID 09/12 2099 AC 09/16 PO 0843 Results Pertinent Lab Results: Laboratory Tests 09/16 09/16 09/15 09/14 09/13 0800 0618 0641 0627 1830 Blood Gas Pulse Ox Probe Site RP ABG O2 Sat Calc/Juice (92.0 - 96.0 %) 95.0 O2 Concentration % RA O2 Delivery Method RA Chemistry Sodium (137 - 145 mmol/L) 141 141 140 Potassium (3.5 - 5.1 mmol/L) 4.2 4.1 4.2 Chloride (98 - 107 mmol/L) 104 104 104 Carbon Dioxide (22 - 30 mmol/L) 26 24 21 L Anion Gap (5 - 16) 12 14 15 BUN (9 - 20 mg/dL) 84 H 82 H 77 H Creatinine (0.7 - 1.2 mg/dL) 2.3 H 2.3 H 2.1 H Estimated GFR (>60 ml/min) 28 L 28 L 31 L BUN/Creatinine Ratio (7 - 25 %) 36.5 H 35.7 H 36.7 H Magnesium (1.6 - 2.3 mg/dL) 2.1 2.0 1.8 Hematology Retic Count (0.5 - 2.0 %) 3.87 H Imaging/Other Studies: None new
[2017-09-16] MEDS ORDERED: ISOSORBIDE MONO60 M1 PO ×2 (13:50→16:27)
[2017-09-16] MEDS ORDERED: LASIX80 M1 PO ×2 (13:50→16:27)
[2017-09-16 14:49] VITALS: BP 124/64
--- NOTE | 2017-09-16 16:43 | PN- Pulmonary ---
Subjective HPI/Critical Care Issues: Giovana markham NOcturnal oxymetry reviewed and showed sig desat for more than 5 mins (needs nocturnal oxygen upon dc - qualifies per medicare criteria dx Pulm htn) Objective Current Medications: Current Medications Sig/Silvia Start time Last Medication Dose Route Stop Time Status Admin Acetaminophen 650 MG .STK-MED ONE 09/15 1654 DC PO 09/15 1655 Acetaminophen 650 MG Q6P PRN 09/12 1445 AC 09/15 PO 1656 Allopurinol 100 MG DAILY 09/13 09 AC 09/16 PO 0842 Aspirin Buffered 81 MG DAILY 09/13 0900 AC 09/16 PO 0843 Atorvastatin Calcium 80 MG 1700 09/12 1700 AC 09/15 PO 1657 Carvedilol 25 MG BID 09/12 2100 AC 09/16 PO 0843 Cholecalciferol 2,000 IU DAILY 09/13 0900 AC 09/16 PO 0842 Clopidogrel Bisulfate 75 MG DAILY 09/13 0900 AC 09/16 PO 0842 Cyanocobalamin 1,000 MCG DAILY 09/13 09 AC 09/16 PO 0843 Escitalopram Oxalate 5 MG DAILY 09/13 0900 AC 09/16 PO 0843 Ferric Sodium 125 MG Q48 09/18 0900 AC Gluconate Complex IV 09/26 0959 Sodium Chloride 100 ML Ferric Sodium 125 MG DAILY 09/14 1500 DC 09/16 Gluconate Complex IV 09/21 0959 0842 Sodium Chloride 100 ML Furosemide 80 MG DAILY 09/16 0900 AC 09/16 PO 0843 Furosemide 40 MG 7:30 AM, & 4:30 PM 09/13 2145 DC 09/15 IV 09/16 0000 1656 Heparin Sodium 5,000 UNIT Q8 09/12 2200 AC 09/16 (Porcine) SC 1421 Hydralazine HCl 25 MG BID 09/15 1011 AC 09/16 PO 0842 Insulin Aspart 0 TIDAC 09/12 1700 AC 09/16 SC 1232 Insulin Detemir 20 UNITS BID 09/12 2100 AC 09/16 SC 0843 Isosorbide 60 MG DAILY 09/16 0900 AC 09/16 Mononitrate PO 0842 Levothyroxine Sodium 0.125 MG DAILY AC 09/13 0700 AC 09/16 PO 0625 Losartan Potassium 25 MG DAILY 09/16 1315 AC 09/16 PO 1547 Magnesium Oxide 400 MG BID 09/14 0900 AC 09/16 PO 0843 Melatonin 5 MG QPM 09/12 2099 AC 09/15 PO 2037 Patient Medication 1 ED ONE ONE 09/15 1645 DC Teaching ED 09/15 1646 Ranolazine 500 MG BID 09/12 2099 AC 09/16 PO 0843 Tamsulosin HCl 0.4 MG BID 09/12 2099 AC 09/16 PO 0843 Vital Signs & I&O Last 24 Hrs of Vitals and I&O: Vital Signs Date Time Temp Pulse Resp B/P B/P Pulse O2 O2 Flow FiO2 Mean Ox Delivery Rate 09/16 1449 97.6 62 20 124/64 97 Room Air 09/16 0843 66 122/62 09/16 0843 66 122/62 09/16 0843 66 122/62 09/16 0842 66 122/62 09/16 0842 66 122/62 09/16 0800 94 Room Air Room Air 09/16 0627 97.8 60 22 122/62 95 Room Air 09/15 2146 97.8 61 20 128/64 94 Room Air 09/15 2121 Room Air 09/15 2037 106/60 09/15 2037 68 106/60 09/158 106/60 09/15 2036 68 106/60 Intake & Output 09/16 1600 09/16 0800 09/16 0000 Intake Total 770 220 100 Output Total 400 400 375 Balance 370 -180 -275 Intake, IV 150 Intake, Oral 620 220 100 Number 1 Bowel Movements Output, Urine 400 400 375 Patient 174 lb Weight Weight Bed scale Measurement Method Impression/Plan Impression/Plan Impression/Plan: General Appearance: awake, mild distress Head: atraumatic, normal appearance Respiratory: crackles Cardiovascular: edema, gallop/S3 Gastrointestinal: soft, non-tender Extremities: swelling 76-year-old male PMH of Vascular dementia, CAD, cardiomyopathy, coronary artery disease, myocardial infarction, cardiomyopathy, systolic congestive heart failure, hypertension, hyperlipidemia, diabetes mellitus, pneumonia, sick sinus syndrome status post pacemaker placement 2014 Htn, HLD, STEMI, CHF, right carotid complete occlusion, 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 Patient now has severe mitral regurgitation by echocardiogram with reversal of flow into the pulmonary veins. Most of his symptoms are related to mixed chronic systolic and diastolic heart failure with low ejection fraction and valvular heart disease * Chronic effusion especially in the left with previous thoracentesis which had not revealed any involvement of liposarcoma. This was an exudative pleural fluid. Patient now has chronic stable left effusion which has been present since 2016. No clinical evidence suggestive of any other malignancy at this present time * CKD with richelle * Significant vascular dementia with worsening performance status * Peripheral vascular disease with carotid endarterectomy * Diabetes, and peripheral vascular disease, BPH, hypertension, gout, heart disease with chronic diastolic and systolic heart failure. * Chronic kidney disease with previous nephrectomy * Enlarging liver mass which is prob liposarcoma met which is increasing in size * Nocuturnal hypoxia due to prob central apnea, chf etc REC Oxygen at bedtime with 2 litres and needs to be dcd on it No indication to do thoracentesis in the left side at this time as he has loculated chronic organized effusion No other workup for pulmonary hypertension is necessary at this time\ Diuresis per cardiology We will follow closely NOcturnal oxymetry reviewed and showed sig desat for more than 5 mins (needs nocturnal oxygen upon dc - qualifies per medicare criteria dx Pulm htn)
== END 2017-09-16 16:30 | disposition home health service (06) | DRG 291 ==
LOC: ERH 08:39 → 1NO 09:15 → ERHI 09:15 → ENRESERV 12:03 → ENTRNSPT 12:23 → EDTRNSPTSTS 12:29 → 1NO 12:32 → CMPTRNSPT 12:48 → CMPBEDREQ 15:30 → 1NO 17:32 → ENPENDDIS 09-16 14:34 → ENTRNSPT 09-16 16:20 → EDTRNSPTSTS 09-16 16:22 → EDTRNSPT 09-16 16:22 → 1NO 09-16 16:30 → CMPTRNSPT 09-16 16:42
PROVIDERS: Emergency Medicine; Internal Medicine Interventional Cardiology
DX: I13.0 Hypertensive heart and chronic kidney disease with heart failure and stage 1 through stage 4 chronic kidney disease, or unspecified chronic kidney disease (principal); I50.43 Acute on chronic combined systolic (congestive) and diastolic (congestive) heart failure; N18.4 Chronic kidney disease, stage 4 (severe); E11.51 Type 2 diabetes mellitus with diabetic peripheral angiopathy without gangrene; I25.5 Ischemic cardiomyopathy; E11.22 Type 2 diabetes mellitus with diabetic chronic kidney disease; F01.50 Vascular dementia, unspecified severity, without behavioral disturbance, psychotic disturbance, mood disturbance, and anxiety; D63.1 Anemia in chronic kidney disease; M06.9 Rheumatoid arthritis, unspecified; I25.2 Old myocardial infarction; I25.10 Atherosclerotic heart disease of native coronary artery without angina pectoris; E78.5 Hyperlipidemia, unspecified; K58.9 Irritable bowel syndrome, unspecified; N40.0 Benign prostatic hyperplasia without lower urinary tract symptoms; M10.9 Gout, unspecified; M35.3 Polymyalgia rheumatica; E03.9 Hypothyroidism, unspecified; E66.9 Obesity, unspecified; M19.90 Unspecified osteoarthritis, unspecified site; D49.0 Neoplasm of unspecified behavior of digestive system; Z85.528 Personal history of other malignant neoplasm of kidney; Z79.4 Long term (current) use of insulin; Z90.5 Acquired absence of kidney; Z91.041 Radiographic dye allergy status; Z95.5 Presence of coronary angioplasty implant and graft; Z95.0 Presence of cardiac pacemaker
CPT/HCPCS: 1NP; 36415; 36592; 71046; 82436; 93005; 93010; 93306; 97116-GO; 97161-GP; J1644; J1940